=== PATIENT | female | born 1995 | race Two or more races ===

== ENCOUNTER 2024-12-02 09:10 | Emergency (ER) | payer OTHER ==
[~2024-12-02] VITALS: Ht 157.5 cm; Wt 100.0 kg
--- NOTE | 2024-12-02 09:36 | ECG ---
[facility] Test Date: 2024-12-02 Test Time: 09:20:15 Pat Name: MORIAH CLIFTON Department: ER Room: Gender: F Comprehensive Ophthalmologist: STAR : 1995 Requested By: GIL ROLDAN Order Number: [id number] Reading MD: Naveed Garner Measurements Intervals [place] Rate: 82 P: 0 TN: 0 QRS: 55 QRSD: 81 T: 35 QT: 372 QTc: 435 Interpretive Statements Normal sinus rhythm Low voltage, precordial leads Electronically Signed On 12-02-2024 21:08:34 PDT by Naveed Garner Please click the below link to view image of tracing.
--- NOTE | 2024-12-02 10:05 | ED.PDOC ---
HPI Comments 29 y/o F, with PMHx of arthritis, asthma, and HTN presents to the ED for CC of chest pain. Patient states, she has been experiencing left sided chest pain with associated dizziness and lightheadedness since, early last night (12/01/24). Patient reports, pain to feel as a pinching sensation. Patient denies palpitations, shortness of breath, or headache. No other symptoms or modifying factors present at this time. 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 Family History Family History: Unknown Social History Smoker: Non-Smoker Alcohol: Denies ETOH Use Drugs: Denies Drug Use Lives In: Home Constitutional: denies: chills, diaphoresis, fatigue, fever, malaise, sweats, weakness, others EENTM: denies: blurred vision, double vision, ear bleeding, ear discharge, ear drainage, ear pain, ear ringing, eye pain, eye redness, hearing loss, mouth pain, mouth swelling, nasal discharge, nose bleeding, nose congestion, nose pain, photophobia, tearing, throat pain, throat swelling, voice changes, others Respiratory: denies: cough, hemoptysis, orthopnea, SOB at rest, shortness of breath, SOB with excertion, stridor, wheezing, others Cardiovascular: reports: chest pain; denies: dizzy spells, diaphoresis, Dyspnea on exertion, edema, irregular heart beat, left arm pain, lightheadedness, palpitations, PND, syncope, others Gastrointestinal: denies: abdomen distended, abdominal pain, blood streaked bowels, constipated, diarrhea, dysphagia, difficulty swallowing, hematemesis, melena, nausea, poor appetite, poor fluid intake, rectal bleeding, rectal pain, vomiting, others Genitourinary: denies: abnormal vagina bleeding, burning, dyspareunia, dysuria, flank pain, frequency, hematuria, incontinence, pain, , vagina discharge, urgency, others Neurological: reports: dizziness, others (lightheadedness); denies: fainting, headache, left sided numbness, left sided weakness, numbness, paresthesia, pre- existing deficit, right sided numbness, right sided weakness, seizure, speech problems, tingling, tremors, weakness Musculoskeletal: denies: back pain, gout, joint pain, joint swelling, muscle pain, muscle stiffness, neck pain, others Integumetry: denies: bruises, change in color, change in hair/nails, dryness, laceration, lesions, lumps, rash, wounds, others Allergic/Immunocompromised: denies: Difficulty Healing, Frequent Infections, Hives, Itching, others Hematologic/Lymphatic: denies: anemia, blood clots, easy bleeding, easy bruising, swollen glands, others Endocrine: denies: excessive hunger, excessive sweating, excessive thirst, excessive urination, flushing, intolerance to cold, intolerance to heat, unexplained weight gain, unexplained weight loss, others Psychiatric: denies: anxiety, bipolar disorder, depression, hopeless, panic disorder, schizophrenia, sleepless, suicidal, others All Other Systems: Reviewed and Negative Physical Exam General Appearance: No Apparent Distress, Normal HEENT: Normal ENT Inspection, Pharynx Normal Neck: Full Range of Motion, Non-Tender, Normal, Normal Inspection Respiratory: Chest Non-Tender, Lungs Clear, No Accessory Muscle Use, No Respiratory Distress, Normal Breath Sounds Cardiovascular: No Edema, No Murmur, No Gallop, Normal Peripheral Pulses, Regular Rate/Rhythm Breast Exam: Deferred Gastrointestinal: No Organomegaly, Non Tender, No Pulsatile Mass, Normal Bowel Sounds, Soft Genitalia: Deferred Pelvic: Deferred Rectal: Deferred Extremities: No calf tenderness, Normal capillary refill, Normal inspection, Normal range of motion, Non-tender, No pedal edema Musculoskeletal : Apperance: Normal Neurologic: Alert, lead front end developer II-XII nml as Tested, No Motor Deficits, Normal Affect, Normal Mood, No Sensory Deficits Cerebellar Function: Normal Reflexes: Normal Skin: Dry, Normal Color, Warm Lymphatic: No Adenopathy Was a procedure done? Was a procedure done?: No CP Differential Dx Differential Diagnosis: A-fib Differential Diagnosis: HTN Essential, HTN Accelerated Differential Diagnosis: Chest Wall Pain, Costochondritis X-Ray, Labs, Meds, VS Vital Signs Date Time Temp Pulse Resp B/P (MAP) Pulse Ox O2 Delivery O2 Flow Rate FiO2 12/02/24 10:45 68 14 97 Room Air* 0 21 12/02/24 10:21 64 12/02/24 09:43 97.7 85 16 141/79 (99) 95 97.7 12/02/24 09:20 86 12/02/24 09:11 97.6 89 18 152/90 (110) 100 97.6 Lab Test 12/02/24 10:25 12/02/24 09:25 12/02/24 09:18 Range/Units Troponin I High Sensitivity < 3 L < 3 L </=34 ng/L White Blood Count 9.7 4.4-10.8 10^3/uL Red Blood Count 5.19 4.0-5.20 10^6/uL Hemoglobin 15.5 12.2-16.2 g/dL Hematocrit 45.9 36.0-46.0 % Mean Corpuscular Volume 88.4 80.0-100.0 fL Mean Corpuscular Hemoglobin 29.9 28.0-32.0 pg Mean Corpuscular Hemoglobin Concent 33.8 32.0-36.0 g/dL Red Cell Distribution Width 13.1 11.8-14.3 % Platelet Count 282 140-450 10^3/uL Mean Platelet Volume 8.6 6.9-10.8 fL Neutrophils (%) (Auto) 67.0 37.0-80.0 % Lymphocytes (%) (Auto) 23.8 10.0-50.0 % Monocytes (%) (Auto) 6.8 0.0-12.0 % Eosinophils (%) (Auto) 1.8 0.0-7.0 % Basophils (%) (Auto) 0.6 0.0-2.0 % Neutrophils # (Auto) 6.5 1.6-8.6 10 ^3/uL Lymphocytes # (Auto) 2.3 0.4-5.4 10 ^3/uL Monocytes # (Auto) 0.7 0-1.3 10 ^3/uL Eosinophils # (Auto) 0.2 0-0.8 10 ^3/uL Basophils # (Auto) 0.1 0-0.2 10 ^3/uL Nucleated Red Blood Cells 0.0 % Sodium Level 140 136-145 mmol/L Potassium Level 4.0 3.5-5.1 mmol/L Chloride Level 103 98-107 mmol/L Carbon Dioxide Level 27 20-31 mmol/L Anion Gap 10 5-15 Blood Urea Nitrogen 10 9-23 mg/dL Creatinine 0.65 0.550-1.02 mg/dL Glomerular Filtration Rate Calc 121 >90 mL/min BUN/Creatinine Ratio 15.4 10.0-20.0 Serum Glucose 105 74-106 mg/dL Calcium Level 9.8 8.7-10.4 mg/dL POC Glucose 96 70-106 mg/dl [place] [address] Ph: [phone] DIAGNOSTIC IMAGING Diagnostic Imaging Report : [id number] Signed PATIENT: MORIAH CLIFTONCCT: [id number] UNIT: [id number] : 1995 LOC: ER ROOM / BED: / AGE / SEX: 29 / F ADM STATUS: REG ER SERVICE 1026 ORDERING PHYSICIAN: GIL ROLDAN MD PROCEDURE(s): CXRP - CHEST PORTABLE REASON: chest pain ORDER NUMBER(s): [id number], ACCESSION NUMBER(s): [id number] EXAM: XY CHEST PORTABLE HISTORY: chest pain COMPARISON: None TECHNIQUE: Portable upright AP view of the chest was performed. FINDINGS: No pneumothorax, consolidative infiltrates, or pulmonary edema. The heart is not enlarged. There is slight thoracic dextroscoliosis. IMPRESSION: No acute intrathoracic process. ATED BY: HERBER CHASE MD DICTATED DATE/TIME: 12/02/24 1101 SIGNED BY: HERBER CHASE MD SIGNED DATE/TIME: 12/02/24 110 CC: Time of 1ST Reevaluation: 10:20 Reevaluation 1ST: Unchanged Patient Education/Counseling: Diagnosis, Treatment Family Education/Counseling: No Family Present Departure 1 Departure Time of Disposition: 11:07 (Patient presented with chest pain that was concerning for possible STEMI, ACS, PE, Pneumonia, Muscle Strain, COPD, Dissection. Data: 1. I ordered and reviewed the result of at least 3 labs incl uding a CBC, BMP, and Troponin. 2. I independently interpreted the following tests: EKG which shows normal sinus rhythm and Chest X-ray which shows a benign chest.Risk:This patient presented with a high risk of morbidity due to further diagnostic testing or treatment and may suffer from an acute cardiac or respiratory disorder. After review of all the data patient is unlikely to have a pe , dissection, and is low risk for acs. Patient is stable at this time.Workup so far is benign and patient will be discharged with outpatient followup. ) Impression: Primary Impression: Acute chest pain Disposition: HOME / SELF CARE / HOMELESS Condition: Stable Additional Instructions: You presented today with chest pain. Your workup today was benign including labs, troponin, EKG, chest x-ray. Your pain may be from musculoskeletal strain, acid reflux, anxiety, or many other factors. It is important to follow up with your regular doctor within 1 week. If your symptoms worsen or you have any other concerns please return to the emergency room. Discharged With: Self Critical Care Note Critical Care Time?: No Stability Stability form required: No Heart Score Heart Score: Heart Score Response (Comments) Value History N/A 0 EKG N/A 0 Age N/A 0 Risk Factors N/A 0 Troponin N/A 0 Total 0 I personally scribed for GIL ROLDAN MD ([email or web address]) on 12/02/24 at 10:05. Electronically submitted by Chanel Caban ([email or web address]). I personally scribed for GIL ROLDAN MD ([email or web address]) on 12/02/24 at 11:06. Electronically submitted by Chanel Caban ([email or web address]). GIL ROLDAN MD December 02, 2024 10:05
[2024-12-02 10:25] LABS: Basophils # (auto) 0.1 10 ^3/uL (0-0.2); Basophils % (auto) 0.6 % (0.0-2.0); Eosinophils # (auto) 0.2 10 ^3/uL (0-0.8); Eosinophils % (auto) 1.8 % (0.0-7.0); Hematocrit 45.9 % (36.0-46.0); Hemoglobin 15.5 g/dL (12.2-16.2); Lymphocytes # (auto) 2.3 10 ^3/uL (0.4-5.4); Lymphocytes % (auto) 23.8 % (10.0-50.0); Mean Corpuscular Hemoglobin 29.9 pg (28.0-32.0); Mean Corpuscular Hgb Conc. 33.8 g/dL (32.0-36.0); Mean Corpuscular Volume 88.4 fL (80.0-100.0); Monocytes # (auto) 0.7 10 ^3/uL (0-1.3); Monocytes % (auto) 6.8 % (0.0-12.0); Neutrophils # (auto) 6.5 10 ^3/uL (1.6-8.6); Platelet Count (auto) 282 10^3/uL (140-450); Red Blood Cells 5.19 10^6/uL (4.0-5.20); Red Cell Distribution Width 13.1 % (11.8-14.3); White Blood Cell 9.7 10^3/uL (4.4-10.8)
[2024-12-02 10:27] LABS: Chloride 103 mmol/L (98-107); Sodium 140 mmol/L (136-145)
[2024-12-02 10:28] LABS: Anion Gap 10 (5-15); Calcium 9.8 mg/dL (8.7-10.4); Carbon Dioxide 27 mmol/L (20-31)
[2024-12-02 10:33] LABS: BUN/Creatinine Ratio 15.4 (10.0-20.0); Blood Urea Nitrogen 10 mg/dL (9-23); Glucose 105 mg/dL (74-106)
[2024-12-02 10:45] VITALS: PULSE 68; RESP 14; O2SAT 97
--- NOTE | 2024-12-02 11:03 | DVH ---
EXAM: XY CHEST PORTABLE HISTORY: chest pain COMPARISON: None TECHNIQUE: Portable upright AP view of the chest was performed. FINDINGS: No pneumothorax, consolidative infiltrates, or pulmonary edema. The heart is not enlarged. There is s light thoracic dextroscoliosis. IMPRESSION: No acute intrathoracic process.
--- NOTE | 2024-12-02 11:06 | ECG ---
[facility] Test Date: 2024-12-02 Test Time: 10:21:30 Pat Name: MORIAH CLIFTON Department: ED Room: Gender: F Jd Edwards Developer: gp : 1995 Requested By: GIL ROLDAN Order Number: [id number] Reading MD: Naveed Garner Measurements Intervals [place] Rate: 64 P: 65 TN: 152 QRS: 50 QRSD: 81 T: 32 QT: 397 QTc: 410 Interpretive Statements Sinus rhythm Low voltage, precordial leads Electronically Signed On 12-02-2024 21:07:37 PDT by Naveed Garner Please click the below link to view image of tracing.
[2024-12-02 14:22] LABS: Urine Bacteria FEW /hpf (None Seen); Urine Blood 3+ /uL (Negative); Urine Clarity Turbid (Clear); Urine Color Colorless (Yellow); Urine Protein, UAD Negative (Negative); Urine Specific Gravity 1.004 (1.001-1.035); Urine Squamous Epithelial Cell FEW /hpf (<5); Urine Urobilinogen Normal (Negative); Urine WBC < 1 /HPF (0-5)
[2024-12-02 15:00] VITALS: BP 115/73; PULSE 78; RESP 16; TEMP 98.7; O2SAT 98
[2024-12-03] MEDS ORDERED: MECL1TAB42 PO (17:23)
== END 2024-12-02 15:24 | disposition home or self-care (01) ==
LOC: ER 09:10
DX: R07.89 Other chest pain (principal); I10 Essential (primary) hypertension; M19.90 Unspecified osteoarthritis, unspecified site; J44.89 Other specified chronic obstructive pulmonary disease; Z88.6 Allergy status to analgesic agent
CPT/HCPCS: 36415; 71045; 80048; 81001; 82947; 82962; 84484; 85025; 85379; 93005

== ENCOUNTER 2024-12-03 15:26 | Emergency (ER) | payer OTHER ==
[~2024-12-03] VITALS: Ht 157.5 cm; Wt 83.1 kg
--- NOTE | 2024-12-03 15:34 | ED.PDOC ---
History of Present Illness HPI Comments 29-year-old female brought by paramedics because he was having chest pain with no radiation of the chest pain to the shoulder to the back which started yesterday continued to present moment. Patient was seen for the same symptom yesterday for which she was discharged after normal workup. She comes back today because she continues to have the chest pain with no shortness a breath. She also states her blood pressure has been fluctuating. Blood pressure on arrival was 142/88. Denies any past medical history of hypertension diabetes. Denies any other symptoms. 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 Family History Family History: Unknown Social History Smoker: Non-Smoker Alcohol: Denies ETOH Use Drugs: Denies Drug Use Lives In: Home Constitutional: denies: chills, diaphoresis, fatigue, fever, malaise, sweats, weakness, others Respiratory: denies: cough, hemoptysis, orthopnea, SOB at rest, shortness of breath, SOB with excertion, stridor, wheezing, others Cardiovascular: reports: chest pain; denies: dizzy spells, diaphoresis, Dyspnea on exertion, edema, irregular heart beat, left arm pain, lightheadedness, palpitations, PND, syncope, others Gastrointestinal: denies: abdomen distended, abdominal pain, blood streaked bowels, constipated, diarrhea, dysphagia, difficulty swallowing, hematemesis, melena, nausea, poor appetite, poor fluid intake, rectal bleeding, rectal pain, vomiting, others Genitourinary: denies: abnormal vagina bleeding, burning, dyspareunia, dysuria, flank pain, frequency, hematuria, incontinence, pain, , vagina discharge, urgency, others Neurological: denies: dizziness, fainting, headache, left sided numbness, left sided weakness, numbness, paresthesia, pre-existing deficit, right sided numbness, right sided weakness, seizure, speech problems, tingling, tremors, weakness, others Musculoskeletal: denies: back pain, gout, joint pain, joint swelling, muscle pain, muscle stiffness, neck pain, others Integumetry: denies: bruises, change in color, change in hair/nails, dryness, laceration, lesions, lumps, rash, wounds, others Allergic/Immunocompromised: denies: Difficulty Healing, Frequent Infections, Hives, Itching, others Hematologic/Lymphatic: denies: anemia, blood clots, easy bleeding, easy bruising, swollen glands, others Endocrine: denies: excessive hunger, excessive sweating, excessive thirst, excessive urination, flushing, intolerance to cold, intolerance to heat, un explained weight gain, unexplained weight loss, others Psychiatric: denies: anxiety, bipolar disorder, depression, hopeless, panic disorder, schizophrenia, sleepless, suicidal, others Physical Exam General Appearance: Moderate Distress HEENT: Normal ENT Inspection, Pharynx Normal, TMs Normal Neck: Full Range of Motion, Non-Tender, Normal, Normal Inspection Respiratory: Chest Non-Tender, Lungs Clear, No Accessory Muscle Use, No Respiratory Distress, Normal Breath Sounds Cardiovascular: No Edema, No JVD, No Murmur, No Gallop, Normal Peripheral Pulses, Regular Rate/Rhythm Breast Exam: Deferred Gastrointestinal: No Organomegaly, Non Tender, No Pulsatile Mass, Normal Bowel Sounds, Soft Genitalia: Deferred Pelvic: Deferred Rectal: Deferred Extremities: No calf tenderness, Normal capillary refill, Normal inspection, Normal range of motion, Non-tender, No pedal edema Musculoskeletal : Apperance: Normal Neurologic: Alert, transport tech II-XII nml as Tested, No Motor Deficits, Normal Affect, Normal Mood, No Sensory Deficits Cerebellar Function: NOT DONE Reflexes: NOT DONE Skin: Dry, Normal Color, Warm Peripheral Pulses: 3+ Radial (R), 3+ Radial (L) Lymphatic: No Adenopathy Was a procedure done? Was a procedure done?: No EKG EKG : [place]: Normal Cardiac Rhythm: NSR Differential Dx Considerations may include: Anxiety Musculoskeletal pain X-Ray, Labs, Meds, VS Vital Signs Date Time Temp Pulse Resp B/P (MAP) Pulse Ox O2 Delivery O2 Flow Rate FiO2 12/03/24 15:27 63 Lab Test 12/03/24 16:34 12/03/24 15:36 Range/Units Troponin I High Sensitivity < 3 L < 3 L </=34 ng/L D-Dimer, Quantitative < 0.19 0.0-0.49 mg/L FEU Patient alert. Complaining of chest pain. EKG reviewed does not show any acute changes. Vitals stable. Answering questions. No leg swelling. No shortness a breath. No radiation of the chest pain. Was given aspirin. Was given meclizine. Reviewed her previous visit. [facility] Explained to the patient. Continue monitoring. On re-evaluation she has good muscle strength. D-dimer within normal limits. Cardiac marker within normal limits. No sign of any distress. No sign of TIA. No sign of CVA. No risk factors. Possible anxiety. CT scan of the head was not done because physical examination was pristine. Was given prescription of meclizine for possible autonomic disorder. Was told to follow up with her primary care physician. Was told to come back if there is any problem. Time of 1ST Reevaluation: 15:32 Reevaluation 1ST: Improved Patient Education/Counseling: Diagnosis, Treatment, Prognosis, Need For Follow Up Family Education/Counseling: No Family Present Departure 1 Departure Time of Disposition: 15:33 Impression: Primary Impression: Autonomic disorder Additional Impressions: Musculoskeletal chest pain Anxiety Disposition: 01 HOME / SELF CARE / HOMELESS Condition: Good e-Prescriptions Meclizine HCl (Meclizine 25) 25 Mg Tab 25 MG PO DAILY for 5 Days, #5 TAB Prov: BILL HAM MD 12/03/24 Discharged With: Self Critical Care Note Critical Care Time?: No Stability Stability form required: No Heart Score Heart Score: Heart Score Response (Comments) Value History Slightly Suspicious 0 EKG Normal 0 Age <45 0 Risk Factors No known risk factors 0 Troponin Normal limit 0 Total 0 BILL HAM MD December 03, 2024 15:34
[2024-12-03] MEDS ORDERED: MECL1TAB42 PO (17:23)
[2024-12-03 17:37] VITALS: BP 142/88; PULSE 70; RESP 18; TEMP 97.6; O2SAT 99
[2024-12-03] MEDS: ASPirin 325 MG TAB PO ONE (18:42)
[2024-12-03] MEDS: MECLIZINE HCL 25 MG TAB PO ONE (18:42)
--- NOTE | 2024-12-04 07:14 | ECG ---
[facility] Test Date: 2024-12-03 Test Time: 15:27:19 Pat Name: MORIAH CLIFTON Department: ED Room: Gender: F Procurement Clerk: GEORGE : 1995 Requested By: BILL HAM Order Number: [id number] Reading MD: Naveed Garner Measurements Intervals [place] Rate: 63 P: 55 [place]: 158 QRS: 33 QRSD: 82 T: 7 QT: 398 QTc: 408 Interpretive Statements Sinus rhythm Electronically Signed On 12-08-2024 12:08:28 PDT by Naveed Garner Please click the below link to view image of tracing.
== END 2024-12-03 18:56 | disposition home or self-care (01) ==
LOC: EDBD 15:26 → ER 15:29
DX: G90.9 Disorder of the autonomic nervous system, unspecified (principal); R07.89 Other chest pain; F41.9 Anxiety disorder, unspecified; I10 Essential (primary) hypertension; J45.909 Unspecified asthma, uncomplicated; M19.90 Unspecified osteoarthritis, unspecified site; Z88.6 Allergy status to analgesic agent
CPT/HCPCS: 36415; 84484; 85379; 93005; 99284; J8597

== ENCOUNTER 2025-03-28 17:22 | Emergency (ER) | payer OTHER ==
[~2025-03-28] VITALS: Ht 157.5 cm; Wt 100.0 kg
[~2025-03-28 17:22] MED LIST: MECL1TAB42 PO
[2025-03-28] MEDS: OXYCODONE W/ ACETAMINOPHEN 5/325MG TABLET PO ONE (18:29)
--- NOTE | 2025-03-28 18:45 | ED.PDOC ---
Back pain HPI HPI Comments 29-YEAR-OLD FEMALE PRESENTS TO THE ED CHIEF COMPLAINT OF MID TO LOW BACK PAIN. PATIENT REPORTS MID TO LOWER BACK [PAIN RADFIATES TO BUTTOCKS AND LEGS STATES INJURY LAST FRIDAY, STATES SHE WAS SEEN AT AN URGENT CARE AND BY HER PCP FOR CC PT STATES MEDICATIONS FOR NERVE PAIN AND PAIN AREE NOT HELPING. PATIENT REPORTS HISTORY OF BACK PAIN IN THE PAST, HOWEVER SHE NOTES THIS PAIN STARTED AFTER THE COUGHING A LOT. PATIENT STATES SHE WAS PRESCRIBED LYRICA TOOTH, MEDROL DOSEPAK, WAS GIVEN A TORADOL SHOT STATES NO HELP. RATES PAIN 10/10 ON PAIN SCALE I SHARP SHOOTING PAIN DOWN BILATERAL LEGS TO THE FOOT WITH NUMBNESS AND HEAVINESS. DENIES SADDLE ANESTHESIA, LOSS OF BOWEL OR BLADDER CONTROL, OR FOOT DROP. WAITING WITH A WALKER STATES PAIN IS WORSE WITH AMBULATION. 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 Family History Family History: Unknown Social History Smoker: Non-Smoker Alcohol: Denies ETOH Use Drugs: Denies Drug Use Lives In: Home All Other Systems: Reviewed and Negative (SEE HPI) Physical Exam General Appearance: No Apparent Distress, Normal HEENT: Pharynx Normal Neck: Full Range of Motion, Non-Tender Respiratory: Lungs Clear, No Respiratory Distress, Normal Breath Sounds Cardiovascular: No Edema, No JVD, No Murmur, No Gallop, Normal Peripheral Pulses, Regular Rate/Rhythm Breast Exam: Deferred Gastrointestinal: No Organomegaly, Non Tender, No Pulsatile Mass, Normal Bowel Sounds, Soft Genitalia: Deferred Pelvic: Deferred Rectal: Deferred Extremities: No calf tenderness, Normal capillary refill, Normal range of motion, Non-tender, No pedal edema Musculoskeletal : Location: Bilateral Extremity Location: Back (MODERATE TENDERNESS ON PALPATION T9 THROUGH L5 SPINE WITHOUT CREPITUS OR STEP-OFFS. NEGATIVE STRAIGHT LEG RAISE BILATERAL. STRENGTH SENSORY MOTION IS INTACT. FOOT DROP BILATERAL. NO NOTED GROSS EXTERNAL TRAUMA. MODERATE AMOUNT OF SPASMS ALONG THORACIC AND LUMBAR PARASPINAL MUSCLES BILATERAL.) Apperance: Normal Neurologic: Alert, No Motor Deficits, Normal Affect, Normal Mood, No Sensory Deficits Cerebellar Function: Normal Reflexes: Normal Skin: Dry, Normal Color, Warm Lymphatic: No Adenopathy Was a procedure done? Was a procedure done?: No Back Pain Differential Dx Differential Diagnosis: Fracture, Musculoskeletal Pain X-Ray, Labs, Meds, VS Vital Signs Date Time Temp Pulse Resp B/P (MAP) Pulse Ox O2 Delivery O2 Flow Rate FiO2 03/28/25 17:31 97.8 118 18 146/88 100 97.8 Lab Test 03/28/25 17:41 Range/Units Urine Color Colorless Yellow Urine Clarity Clear Clear Urine pH 6.5 5.0-9.0 Urine Specific [place] 1.007 1.001-1.035 Urine Protein Negative Negative Urine Ketones Negative Negative Urine Blood Negative Negative /uL Urine Nitrite Negative Negative Urine Bilirubin Negative Negative Urine Urobilinogen Normal Negative mg/dL Urine Leukocyte Esterase Negative Negative /uL Urine RBC 1 0 - 4 /hpf Urine Microscopic WBC < 1 0-5 /HPF Urine Squamous Epithelial Cells Few <5 /hpf Urine Amorphous Crystals Few None Seen /hpf Urine Bacteria Few H None Seen /hpf Urine Glucose Normal Normal mg/dL Current Medications Medications (Trade) Dose Ordered Sig/Mario Route Start Time Stop Time Status Last Admin Oxycodone/ Acetaminophen (Percocet 5/ 325MG Tablet) 1 tab ONCE ONCE PO 03/28/25 18:30 03/28/25 18:31 DC 03/28/25 18:29 X-Ray, Labs, Meds, VS Comment Thoracic spine: There are 12 rib-bearing thoracic type vertebral bodies. The vertebral body heights are maintained. Alignment is preserved. There is no acute fracture. No high-grade neural foraminal or spinal stenosis. The posterior paraspinal soft tissues are unremarkable. Visualized lungs are clear. Lumbar spine: 5 [id number] lumbar type vertebral bodies. Vertebral body heights are maintained. Alignment is preserved. There is no acute fracture. No high-grade neural foraminal or spinal stenosis. The posterior paraspinal soft tissues are intact. Visualized portions of the abdomen are unremarkable. IMPRESSION: No acute fracture or traumatic malalignment in the thoracic or lumbar spine Time of 1ST Reevaluation: 18:10 Reevaluation 1ST: Unchanged Time of 2ND Reevaluation: 20:18 Reevaluation 2ND: Improved Patient Education/Counseling: Diagnosis, Treatment, Prognosis, Need For Follow Up Family Education/Counseling: No Family Present SEPSIS Sepsis Screen Date sepsis recognized/suspect: Mar 28, 2025 Time Sepsis recognized/suspect: 1731 Recent Procedure: No On Antibiotic Therapy: No Respiratory Rate >20: No Heart Rate >90: No Temp<36 C (96.8 F) or >38.3 C: No SBP <90 or MAP <65 mmHG: No New Acute Mental Status Change: No Is the patient on CPAP, BIPAP,: No Physician Orders Ls Spine Wo Contrast (03/28/25 18:20) Thoracic Spine Wo Contras (03/28/25 18:20) Vital Signs Date Time Temp Pulse Resp B/P (MAP) Pulse Ox O2 Delivery O2 Flow Rate FiO2 03/28/25 17:31 97.8 118 18 146/88 100 97.8 Medications Medications Dose Ordered Sig/Mario Route Start Time Stop Time Status Last Admin Dose Admin Oxycodone/ Acetaminophen 1 tab ONCE ONCE PO 03/28/25 18:30 03/28/25 18:31 DC 03/28/25 18:29 Departure 1 Departure Time of Disposition: 20:16 Impression: Primary Impression: Lumbar sprain Qualified Codes: S33.5XXA - Sprain of ligaments of lumbar spine, initial encounter Additional Impressions: Strain of muscle and tendon of back wall of thorax, initial encounter UTI (urinary tract infection) Qualified Codes: N30.00 - Acute cystitis without hematuria Disposition: 01 HOME / SELF CARE / HOMELESS Condition: Stable e-Prescriptions Nitrofurantoin Monohydrate Mac (Macrobid) 100 Mg Cap 100 MG PO BID for 5 Days, #10 CAP Prov: SHEA MURPHY 03/28/25 Discharged With: Significant Other Critical Care Note Critical Care Time?: No Stability Stability form required: SHEA Merino Mar 28, 2025 18:45
[2025-03-28 19:17] LABS: Urine Amorphous Crystal FEW /hpf (None Seen); Urine Protein, UAD Negative (Negative)
--- NOTE | 2025-03-28 20:06 | DVH ---
CLINICAL HISTORY: bilateral leg numbness/back pain injury TECHNIQUE: CT of the thoracic and lumbar spine was performed without intravenous contrast. This exam was performed according to our departmental dose optimization program. Up-to-date CT equipment and ra diation dose reduction techniques are utilized as appropriate. CTDI: 37.01 +0.48 +32.92 DLP: 1521.14 WID: COMPARISON: None FINDINGS: Thoracic spine: There are 12 rib-bearing thoracic type vertebral bodies. The vertebral body heights are maintained. A lignment is preserved. There is no acute fracture. No high-grade neural foraminal or spinal stenosis. The posterior paraspinal soft tissues are unremarkable. Visualized lungs are clear. Lumbar spine: 5 Uzw-[id number]-xwdlscc lumbar type vertebral bodies. Vertebral body heights are maintained. Alignment is preserved. There is no acute fracture. No high-grade neural foraminal or spinal stenosis. The levee superintendent ior paraspinal soft tissues are intact. Visualized portions of the abdomen are unremarkable. IMPRESSION: No acute fracture or traumatic malalignment in the thoracic or lumbar spine.
--- NOTE | 2025-03-28 20:06 | DVH ---
CLINICAL HISTORY: bilateral leg numbness/back pain injury TECHNIQUE: CT of the thoracic and lumbar spine was performed without intravenous contrast. This exam was performed according to our departmental dose optimization program. Up-to-date CT equipment and ra diation dose reduction techniques are utilized as appropriate. CTDI: 37.01 +0.48 +32.92 DLP: 1521.14 WID: COMPARISON: None FINDINGS: Thoracic spine: There are 12 rib-bearing thoracic type vertebral bodies. The vertebral body heights are maintained. A lignment is preserved. There is no acute fracture. No high-grade neural foraminal or spinal stenosis. The posterior paraspinal soft tissues are unremarkable. Visualized lungs are clear. Lumbar spine: 5 Qlg-ydv-lzgrsuh lumbar type vertebral bodies. Vertebral body heights are maintained. Alignment is preserved. There is no acute fracture. No high-grade neural foraminal or spinal stenosis. The torpedoman's mate ior paraspinal soft tissues are intact. Visualized portions of the abdomen are unremarkable. IMPRESSION: No acute fracture or traumatic malalignment in the thoracic or lumbar spine.
[2025-03-28] MEDS ORDERED: NITR-87 PO (20:18)
[2025-03-28] MEDS ORDERED: HYDR-4902 PO (20:22)
[2025-03-28 20:34] VITALS: BP 144/90; PULSE 88; RESP 18; TEMP 97.5; O2SAT 99
== END 2025-03-28 21:03 | disposition home or self-care (01) ==
LOC: ER 17:22
DX: S29.012A Strain of muscle and tendon of back wall of thorax, initial encounter (principal); S33.5XXA Sprain of ligaments of lumbar spine, initial encounter; I10 Essential (primary) hypertension; J45.909 Unspecified asthma, uncomplicated; M19.90 Unspecified osteoarthritis, unspecified site; N39.0 Urinary tract infection, site not specified; Z88.6 Allergy status to analgesic agent; Z88.8 Allergy status to other drugs, medicaments and biological substances; X58.XXXA Exposure to other specified factors, initial encounter; Y93.89 Activity, other specified; Y92.89 Other specified places as the place of occurrence of the external cause; Y99.8 Other external cause status
CPT/HCPCS: 72128; 72131; 81001

== ENCOUNTER 2025-04-18 15:47 | Inpatient (IN) | payer OTHER ==
[~2025-04-18] VITALS: Ht 157.5 cm; Wt 100.0 kg
[~2025-04-18 15:47] MED LIST changes: +HYDR-4902 PO
--- NOTE | 2025-04-18 16:40 | ED.PDOC ---
History of Present Illness HPI Comments 29-year-old female who presents to the ED with a chief bilateral leg pain onset 4 days. Patient states she was seen in his ED on 03/28/2025 for low back pain, patient took a few weeks off work. Return to work 4 days ago, began experiencing low back pain that worsened this morning. Since this morning, she noticed bilateral hip pain radiating to bilateral legs with a numbness sensation as well as numbness on groin region. States numbness sensation when urinating. Back pain as a burning sensation, noticed back pain worsens when she tries to have a bowel movement. She currently is unable to walk, uses her mother's electrical scooter. Denies nausea, vomiting, diarrhea, chest pain, fever, shortness of breath, dizziness. No other symptoms or modifying factors present at this time. Chief Complaint: Lower Extremity Time Seen by MD: 16:30 Primary Care Provider: UMANG Johnson Notes: Medications, Allergies Allergies: Coded Allergies: Naproxen (Verified Allergy, Unknown, 12/02/24) Home Meds Active Scripts Hydrocodone-Acetaminophen (Hydrocodone Bitartrate/AC 5-325 mg) 1 Tab Tab, 1 TAB PO QID PRN for 4 Days, #16 TAB Prov:GIL ROLDAN MD 03/28/25 Meclizine HCl (Meclizine 25) 25 Mg Tab, 25 MG PO DAILY for 5 Days, #5 TAB Prov:BILL HAM MD 12/03/24 Information Source: Patient Mode of Arrival: Wheelchair Severity: Moderate Timing: Days Duration: Since onset Prehospital treatment: None Past Medical History PAST MEDICAL HISTORY: Arthritis, Asthma, HTN Surgical History: Denies all surgeries 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 Family History Family History: Unknown Social History Smoker: Non-Smoker Alcohol: Denies ETOH Use Drugs: Denies Drug Use Lives In: Home Constitutional: denies: chills, diaphoresis, fatigue, fever, malaise, sweats, weakness, others EENTM: denies: blurred vision, double vision, ear bleeding, ear discharge, ear drainage, ear pain, ear ringing, eye pain, eye redness, hearing loss, mouth pain, mouth swelling, nasal discharge, nose bleeding, nose congestion, nose pain, photophobia, tearing, throat pain, throat swelling, voice changes, others Respiratory: denies: cough, hemoptysis, orthopnea, SOB at rest, shortness of breath, SOB with excertion, stridor, wheezing, others Cardiovascular: denies: chest pain, dizzy spells, diaphoresis, Dyspnea on exertion, edema, irregular heart beat, left arm pain, lightheadedness, palpitations, PND, syncope, others Gastrointestinal: denies: abdomen distended, abdominal pain, blood streaked bowels, constipated, diarrhea, dysphagia, difficulty swallowing, hematemesis, melena, nausea, poor appetite, poor fluid intake, rectal bleeding, rectal pain, vomiting, others Genitourinary: reports: others (groin numbness); denies: abnormal vagina bleeding, burning, dyspareunia, dysuria, flank pain, frequency, hematuria, incontinence, pain, , vagina discharge, urgency Neurological: reports: numbness (groin, bilateral legs); denies: dizziness, fainting, headache, left sided numbness, left sided weakness, paresthesia, pre- existing deficit, right sided numbness, right sided weakness, seizure, speech problems, tingling, tremors, weakness, others Musculoskeletal: reports: back pain, others (bilateral hip pain, bilateral leg pain); denies: gout, joint pain, joint swelling, muscle pain, muscle stiffness, neck pain Integumetry: denies: bruises, change in color, change in hair/nails, dryness, laceration, lesions, lumps, rash, wounds, others Allergic/Immunocompromised: denies: Difficulty Healing, Frequent Infections, Hives, Itching, others Hematologic/Lymphatic: denies: anemia, blood clots, easy bleeding, easy bruising, swollen glands, others Endocrine: denies: excessive hunger, excessive sweating, excessive thirst, excessive urination, flushing, intolerance to cold, intolerance to heat, unexplained weight gain, unexplained weight loss, others Psychiatric: denies: anxiety, bipolar disorder, depression, hopeless, panic disorder, schizophrenia, sleepless, suicidal, others All Other Systems: Reviewed and Negative Physical Exam General Appearance: Normal HEENT: Normal ENT Inspection, Pharynx Normal, TMs Normal Neck: Full Range of Motion, Non-Tender, Normal, Normal Inspection Respiratory: Chest Non-Tender, Lungs Clear, No Accessory Muscle Use, No Respiratory Distress, Normal Breath Sounds Cardiovascular: No Edema, No JVD, No Murmur, No Gallop, Normal Peripheral Pulses, Regular Rate/Rhythm Breast Exam: Deferred Gastrointestinal: No Organomegaly, Non Tender, No Pulsatile Mass, Normal Bowel Sounds, Soft Genitalia: Deferred Pelvic: Deferred Rectal: Deferred Extremities: No calf tenderness, Normal capillary refill, Normal inspection, Normal range of motion, Non-tender, No pedal edema Musculoskeletal : Apperance: Normal Neurologic: Alert, contract negotiation manager II-XII nml as Tested, No Motor Deficits, Normal Affect, Normal Mood, No Sensory Deficits Cerebellar Function: Normal Reflexes: Normal Skin: Dry, Normal Color, Warm Lymphatic: No Adenopathy Was a procedure done? Was a procedure done?: No Differential Dx Considerations may include: Cauda equina, lumbar strain, X-Ray, Labs, Meds, VS Vital Signs Date Time Temp Pulse Resp B/P (MAP) Pulse Ox O2 Delivery O2 Flow Rate FiO2 04/18/25 15:59 98.1 97 18 152/94 97 98.1 Lab Test 04/18/25 17:22 Range/Units White Blood Count 11.6 H 4.4-10.8 10^3/uL Red Blood Count 5.12 4.0-5.20 10^6/uL Hemoglobin 15.2 12.2-16.2 g/dL Hematocrit 46.1 H 36.0-46.0 % Mean Corpuscular Volume 90.1 80.0-100.0 fL Mean Corpuscular Hemoglobin 29.7 28.0-32.0 pg Mean Corpuscular Hemoglobin Concent 33.0 32.0-36.0 g/dL Red Cell Distribution Width 14.1 11.8-14.3 % Platelet Count 246 140-450 10^3/uL Mean Platelet Volume 7.7 6.9-10.8 fL Neutrophils (%) (Auto) 65.0 37.0-80.0 % Lymphocytes (%) (Auto) 25.7 10.0-50.0 % Monocytes (%) (Auto) 7.5 0.0-12.0 % Eosinophils (%) (Auto) 1.3 0.0-7.0 % Basophils (%) (Auto) 0.5 0.0-2.0 % Neutrophils # (Auto) 7.5 1.6-8.6 10 ^3/uL Lymphocytes # (Auto) 3.0 0.4-5.4 10 ^3/uL Monocytes # (Auto) 0.9 0-1.3 10 ^3/uL Eosinophils # (Auto) 0.1 0-0.8 10 ^3/uL Basophils # (Auto) 0.1 0-0.2 10 ^3/uL Nucleated Red Blood Cells 0.1 % Sodium Level Pending Potassium Level Pending Chloride Level Pending Carbon Dioxide Level Pending Anion Gap Pending Blood Urea Nitrogen Pending Creatinine Pending Glomerular Filtration Rate Calc Pending BUN/Creatinine Ratio Pending Serum Glucose Pending Calcium Level Pending Time of 1ST Reevaluation: 17:00 Reevaluation 1ST: Unchanged Patient Education/Counseling: Diagnosis, Treatment, Prognosis Family Education/Counseling: No Family Present SEPSIS Sepsis Screen Date sepsis recognized/suspect: Apr 18, 2025 Time Sepsis recognized/suspect: 1558 Recent Procedure: No On Antibiotic Therapy: No Respiratory Rate >20: No Heart Rate >90: Yes Temp<36 C (96.8 F) or >38.3 C: No SBP <90 or MAP <65 mmHG: No New Acute Mental Status Change: No Is the patient on CPAP, BIPAP,: No Physician Orders Ls Spine Wo Contrast (04/18/25 16:33) Basic Metabolic Panel (04/18/25 16:33) Urinalysis (04/18/25 16:33) Vital Signs Date Time Temp Pulse Resp B/P (MAP) Pulse Ox O2 Delivery O2 Flow Rate FiO2 04/18/25 15:59 98.1 97 18 152/94 97 98.1 Laboratory Tests Test 04/18/25 17:22 White Blood Count 11.6 10^3/uL (4.4-10.8) H Departure 1 Departure Time of Disposition: 17:48 (Patient with concern for cauda equina syndrome. We will admit patient for further workup and MRI) Impression: Primary Impression: Lower back pain Qualified Codes: M54.50 - Low back pain, unspecified Additional Impressions: Muscle weakness Urinary retention Saddle anesthesia Disposition: ADMITTED INPATIENT Admit to: Med Surg Condition: Serious Critical Care Note Critical Care Time?: No Stability Stability form required: No Heart Score Heart Score: Heart Score Response (Comments) Value History N/A 0 EKG N/A 0 Age N/A 0 Risk Factors N/A 0 Troponin N/A 0 Total 0 I personally scribed for GIL ROLDAN MD ([email or web address]) on 04/18/25 at 16:40. Electronically submitted by Jenny Tello ([email or web address]). GIL ROLDAN MD Apr 18, 2025 16:40
--- NOTE | 2025-04-18 17:24 | DVH ---
EXAM: CT LS SPINE WO CONTRAST INDICATION: lower back pain with leg weakness and saddle anesthesia TECHNIQUE: Axial images of the lumbar spine have been obtained along with coronal and sagittal reform atted images. CT scans at this facility use dose modulation, iterative reconstruction, and/or weight based dosing when appropriate to reduce radiation dose to as low as reasonably achievable. COMPARISON: CT THORACIC SPINE WO CONTRAS on DOS: 03/28/25, CT LS SPINE WO CONTRAST on DOS: 03/28/25 Dose: CTDIvol: 33.59 mGy, DLP: 1192.3 mGy.cm FINDINGS: There is no acute displaced fracture. There is minimal endplate osteophytosis. Intervertebral disc h eights are well-maintained. The paraspinal soft tissues are unremarkable. LEVEL BY LEVEL DISCUSSION BELOW: T12-L1: Unremarkable. L1-L2: Unremarkable. L2-L3: Unremarkable. L3-L4: Unremarkable. L4-L5: A mild broad-based disc protrusion effaces the thecal sac without significant spinal canal or neural foraminal stenosis. L5-S1: There is a mild broad-based disc protrusion without significant spinal canal or neural foramin al narrowing. IMPRESSION: 1. No acute displaced fracture. 2. Minimal degenerative changes of the lumbar spine as detailed. If clinical symptoms persist, MRI ma y be beneficial in further assessment.
[2025-04-18 17:30] LABS: Hematocrit 46.1 % (36.0-46.0); Hemoglobin 15.2 g/dL (12.2-16.2); Mean Corpuscular Hemoglobin 29.7 pg (28.0-32.0); Mean Corpuscular Volume 90.1 fL (80.0-100.0); Nucleated Red Blood Cells % 0.1 %
[2025-04-18 17:41] LABS: Chloride 105 mmol/L (98-107); Potassium 3.8 mmol/L (3.5-5.1); Sodium 142 mmol/L (136-145)
[2025-04-18 17:42] LABS: Anion Gap 10 (5-15); Calcium 8.8 mg/dL (8.7-10.4); Carbon Dioxide 27 mmol/L (20-31)
[2025-04-18 17:47] LABS: BUN/Creatinine Ratio 10.8 (10.0-20.0); Glucose 102 mg/dL (74-106)
[2025-04-18 17:56] LABS: Blood Urea Nitrogen 7 mg/dL (9-23)
[2025-04-18 22:08] LABS: INR 1.02 (0.9-1.15); Partial Thromboplastin Time 28.5 SEC (24.5-34.5); Prothrombin Time 10.8 sec (9.3-11.8)
[2025-04-18 22:13] LABS: Alanine Aminotransferase 12.0 U/L (7-40); Albumin 4.2 g/dL (3.2-4.8); Alkaline Phosphatase 111.0 U/L (46-116); Bilirubin, Direct 0.1 mg/dL (<0.3); Cholesterol 166.0 mg/dL (< 200); HDL Cholesterol 49.0 mg/dL (40-59); Magnesium 1.8 mg/dL (1.6-2.6); Total Protein 6.8 g/dL (5.7-8.2); Triglycerides 86.0 mg/dL (< 150)
[2025-04-18 22:14] LABS: Bilirubin, Total 0.4 mg/dL (0.2-1.0)
[2025-04-18 22:36] LABS: Lipase 32.0 U/L (12-53)
[2025-04-19] MEDS ORDERED: VANCOMYCIN PER PHARMACY 0 MG IV SCH (01:30)
[2025-04-19] MEDS: ENOXAPARIN SOD 40 MG/0.4 ML SYRINGE SC SCH (01:30)
--- NOTE | 2025-04-19 01:30 | DVHHPRES ---
History of Present Illness Resident Creating Document: KLAUS NUNEZ RESIDENT History of Present Illness This is a 29-year-old female with past medical history of hypertension, asthma, arthritis, migraine, presented to the ER with chief complain of lower back pain and perineal numbness. She reports that the pain started in the lower back in February 2025 after she sneezed more than 20 times. The pain is located in the lower back, and is described as burning, pressure-like, worsens with movements and somewhat relieved with rest. A month later, in March she started complaining of back pain radiating to the both lower extremities. Since last 1 week, she reports incoordination and loss of balance causing her to fall towards the right side. She has been using a walker to help with support and has not reported a fall. Today, with progressive worsening of pain in bilateral lower limb and associated loss of sensation in perineum, urged her visit to the ER. She reports not having any sensations in perineum while urinating and has been having difficulty with bowel movements. She does not complain of any burning micturition, pain. She has positive history of UTI, treated with nitrofurantoin for 7 days in 1st week of March. Today, she denies any fever, chills, abdominal pain, constipation, diarrhea, recent injury, sick contacts. PHx: Hypertension, Asthma (last exacerbation 10 years back), arthritis, migraine PSHx: section, left foot cyst removal Family history: Significant for breast cancer in both maternal and paternal grandmothers Social history: Denies smoking, recreational drug use. Occasional alcohol use. Lives in home with family. Full code. Next to kin . Home medication: Qulipta, tramadol, Metoprolol Allergic history: Naproxen Patient was examined at bedside today. She is in severe distress due to lower back pain and saddle anesthesia. She is admitted for further management and will be evaluated by spinal surgery. Cardiovascular: HTN Pulmonary: Asthma CASH PERSON: Migraine Review of Systems Musculoskeletal: back pain, leg pain Neurological: Numbness, Incoordination Allergies: Coded Allergies: Naproxen (Verified Allergy, Unknown, 12/02/24) Exam Vital Signs Vital Signs Date Time Temp Pulse Resp B/P (MAP) Pulse Ox O2 Delivery O2 Flow Rate FiO2 04/18/25 15:59 98.1 97 18 152/94 97 98.1 Exam General: Patient alert and oriented in person, place and time. Patient following commands. HEENT: Normocephalic, atraumatic, moist mucous membranes Respiratory/pulmonary: Clear lungs bilaterally, vesicular murmurs present in almost all lung stevens, no associated crackles or wheezes. Cardiovascular: Normal heart sounds S1 and S2 with no associated murmurs Abdomen: Abdomen nondistended, there is no pain to palpation in any of the abdominal quadrants, no palpable masses. Extremities: There is no peripheral edema present at the lower extremities. Tenderness in the lower lumbar spine on deep palpation. Peripheral Pulses: 3+ Radial (R). 3+ Radial (L). 3+ Dorsalis pedis (R). 3+ Dorsalis pedis(L) Skin: No rashes or pruritus, there is no sacral edema present at this time. Neurological: Intact cranial nerves with no focal neurologic deficits. Normal motor strength and sensations in all extremities. Labs/Xrays Labs Test 04/18/25 21:39 04/18/25 17:22 Range/Units Prothrombin Time 10.8 9.3-11.8 sec Prothrombin Time INR 1.02 0.9-1.15 Activated Partial Thromboplast Time 28.5 24.5-34.5 SEC Lactic Acid Level 0.9 0.4-2.0 mmol/L Phosphorus Level 3.1 2.4-5.1 mg/dL Magnesium Level 1.8 1.6-2.6 mg/dL Total Bilirubin 0.4 0.2-1.0 mg/dL Direct Bilirubin 0.1 <0.3 mg/dL Aspartate Amino Transferase (AST) 16 13-40 U/L Alanine Aminotransferase (ALT) 12 7-40 U/L Alkaline Phosphatase 111 46-116 U/L C-Reactive Protein High Sensitivity 1.58 H <1.0 mg/dL Total Protein 6.8 5.7-8.2 g/dL Albumin 4.2 3.2-4.8 g/dL Triglycerides Level 86 < 150 mg/dL Cholesterol Level 166 < 200 mg/dL LDL Cholesterol 117 H < 100 mg/dL HDL Cholesterol 49 40-59 mg/dL Lipase 32 12-53 U/L Vitamin B12 Level 317 211-911 pg/mL Vitamin D 25-Hydroxy 38.0 30.0-100 ng/mL White Blood Count 11.6 H 4.4-10.8 10^3/uL Red Blood Count 5.12 4.0-5.20 10^6/uL Hemoglobin 15.2 12.2-16.2 g/dL Hematocrit 46.1 H 36.0-46.0 % Mean Corpuscular Volume 90.1 80.0-100.0 fL Mean Corpuscular Hemoglobin 29.7 28.0-32.0 pg Mean Corpuscular Hemoglobin Concent 33.0 32.0-36.0 g/dL Red Cell Distribution Width 14.1 11.8-14.3 % Platelet Count 246 140-450 10^3/uL Mean Platelet Volume 7.7 6.9-10.8 fL Neutrophils (%) (Auto) 65.0 37.0-80.0 % Lymphocytes (%) (Auto) 25.7 10.0-50.0 % Monocytes (%) (Auto) 7.5 0.0-12.0 % Eosinophils (%) (Auto) 1.3 0.0-7.0 % Basophils (%) (Auto) 0.5 0.0-2.0 % Neutrophils # (Auto) 7.5 1.6-8.6 10 ^3/uL Lymphocytes # (Auto) 3.0 0.4-5.4 10 ^3/uL Monocytes # (Auto) 0.9 0-1.3 10 ^3/uL Eosinophils # (Auto) 0.1 0-0.8 10 ^3/uL Basophils # (Auto) 0.1 0-0.2 10 ^3/uL Nucleated Red Blood Cells 0.1 % Sodium Level 142 136-145 mmol/L Potassium Level 3.8 3.5-5.1 mmol/L Chloride Level 105 98-107 mmol/L Carbon Dioxide Level 27 20-31 mmol/L Anion Gap 10 5-15 Blood Urea Nitrogen 7 L 9-23 mg/dL Creatinine 0.65 0.550-1.02 mg/dL Glomerular Filtration Rate Calc 121 >90 mL/min BUN/Creatinine Ratio 10.8 10.0-20.0 Serum Glucose 102 74-106 mg/dL Hemoglobin A1c 4.9 <5.7 % A1C Calcium Level 8.8 8.7-10.4 mg/dL Thyroid Stimulating Hormone (TSH) 2.04 0.55-4.78 uIU/mL SEPSIS Sepsis Screen Date sepsis recognized/suspect: Apr 18, 2025 Time Sepsis recognized/suspect: 1559 Recent Procedure: No On Antibiotic Therapy: No Respiratory Rate >20: No Heart Rate >90: Yes Temp<36 C (96.8 F) or >38.3 C: No SBP <90 or MAP <65 mmHG: No New Acute Mental Status Change: No Is the patient on CPAP, BIPAP,: No Physician Orders Complete Blood Count (04/19/25 04:00) Basic Metabolic Panel (04/19/25 04:00) Drug Screen (04/18/25 20:44) Urinalysis (04/18/25 20:44) Admit (04/19/25 01:21) Allergies (04/19/25 01:21) Code Status (04/19/25 01:21) Acetaminophen Tablet (Tylenol Tablet) (04/19/25 01:30) Ondansetron Hcl (Zofran) (04/19/25 01:30) Comprehensive Metabolic Panel (04/19/25 04:00) Condition: Serious (04/19/25 01:21) Morphine Sulfate Injection (04/19/25 01:30) Enoxaparin Sodium (Lovenox) (04/19/25 01:30) Stat Ekg For Chest Pain (04/19/25 01:21) Notify Md Of Changes From Base (04/19/25 01:21) Laboratory Tests Test 04/18/25 17:22 04/18/25 21:39 White Blood Count 11.6 10^3/uL (4.4-10.8) H Lactic Acid Level 0.9 mmol/L (0.4-2.0) Assessment/Plan Assessment/Plan Questionable cauda equina syndrome Rule out Spinal abscess Labs show elevated CRP. MRI spine ordered Bacterial culture, blood culture ordered Started on IV vancomycin. Patient developed mild allergic reaction to ceftriaxone, switch to levofloxacin 500 mg daily Patient was given Benadryl and steroids Jean catheter advised due to saddle anesthesia Spinal surgery consulted NPO overnight Pain management with morphine, acetaminophen Essential hypertension Continue metoprolol succinate 50 mg History of sciatica History of migraine History of asthma, without exacerbation Discontinue home medication (Qulipta), restart with PCP Chronic leukocytosis Ordered peripheral smear Morbid obesity BMI 40.3 A1c 4.9, mildly elevated LDL Counseled on lifestyle and diet Allergic reaction to Ceftriaxone Discontinuous cephalosporins Updated allergy record Patient was given Benadryl and steroids DIET: NPO DVT PROPHYLAXIS: Lovenox CODE STATUS: Goals of care discussed with patient at bedside for more than 36 minutes. Full code DISPOSITION: Med/surge Patient's status and plan discussed with the patient. Case discussed with Dr. Rajput. Plan discussed with: Patient (Nurses), Other (Nurses) My Orders Orders - KLAUS NUNEZ RESIDENT Procedure Category Date Status Time Complete Blood Count LAB 04/19/25 Logged 04:00 Basic Metabolic Panel LAB 04/19/25 Logged 04:00 Drug Screen LAB 04/18/25 Logged 20:44 Urinalysis LAB 04/18/25 Logged 20:44 Admit ADMIT 04/19/25 Transmitted 01:21 Allergies LYNN 04/19/25 In Process 01:21 Code Status CODE 04/19/25 Transmitted 01:21 Acetaminophen Tablet PHA 04/19/25 Logged (Tylenol Tablet) 01:30 Ondansetron Hcl PHA 04/19/25 Logged (Zofran) 01:30 Comprehensive LAB 04/19/25 Logged Metabolic Panel 04:00 Condition: Serious LYNN 04/19/25 In Process 01:21 Morphine Sulfate PHA 04/19/25 Logged Injection 01:30 Enoxaparin Sodium PHA 04/19/25 Logged (Lovenox) 01:30 Stat Ekg For Chest [facility] 04/19/25 In Process Pain 01:21 Notify Md Of Changes [facility] 04/19/25 In Process From Base 01:21 Date of Service: Apr 19, 2025 Billing Provider: CLIVE RAJPUT MD Common Visit Codes: 49454-[id number] INP/OBS CARE (HIGH) Secondary Visit Codes: [id number]-[id number] CARE PLAN 30 MINUTES KLAUS NUNEZ RESIDENT Apr 19, 2025 01:30 HANH ALFRED Apr 19, 2025 05:54
[2025-04-19] MEDS: SODIUM CHLORIDE 0.9% 1,000 ML IV ONE (03:10)
[2025-04-19] MEDS: ONDANSETRON HCL 4 MG/2 ML VIAL IV PRN (03:23)
[2025-04-19] MEDS: MORPHINE SULFATE INJ 2 MG/ml SYRG IV PRN (03:25)
[2025-04-19 03:37] VITALS: O2SAT 98
[2025-04-19] MEDS: VANCOMYCIN 1GM/250ML KIT 250 ML IV SCH (04:00)
[2025-04-19 06:31] LABS: Hematocrit 44.0 % (36.0-46.0); Hemoglobin 15.3 g/dL (12.2-16.2); Mean Corpuscular Hemoglobin 31.0 pg (28.0-32.0); Mean Corpuscular Volume 89.1 fL (80.0-100.0); Nucleated Red Blood Cells % 0.0 %
[2025-04-19 06:46] LABS: Anion Gap 12 (5-15); Carbon Dioxide 23 mmol/L (20-31); Chloride 105 mmol/L (98-107); Potassium 3.7 mmol/L (3.5-5.1); Sodium 140 mmol/L (136-145)
[2025-04-19 06:47] LABS: Calcium 8.8 mg/dL (8.7-10.4)
[2025-04-19 06:52] LABS: BUN/Creatinine Ratio 10.0 (10.0-20.0); Blood Urea Nitrogen 6 mg/dL (9-23); Glucose 122 mg/dL (74-106)
[2025-04-19 10:21] VITALS: BP 115/74; PULSE 83; RESP 18; TEMP 98.3; O2SAT 99
--- NOTE | 2025-04-19 10:59 | DVH ---
PROCEDURE: MRI LUMBAR SPINE WO CONTRAST INDICATION: S/P FALL R/O CAUDA EQUINA Exam Date: 04/19/2025 07:50 AM COMPARISON: CT LS SPINE WO CONTRAST on DOS: 04/18/25, CT LS SPINE WO CONTRAST on DOS: 03/28/25 TECHNIQUE: MRI lumbar spine without intravenous contrast. FINDINGS: Multilevel disc degeneration. Alignment: No spondylolisthesis identified. Vertebrae: Vertebral body height is well maintained without evidence of a recent compression fracture . Conus: Conus medullaris terminates at the L1 level. T12-L1: The disc configuration is normal. No spinal canal or neural foraminal stenosis. Facet arthros is. L1-2: The disc configuration is normal. No spinal canal or neural foraminal stenosis. Facet arthrosis . L2-3: The disc configuration is normal. No spinal canal or neural foraminal stenosis. Facet arthrosis . L3-4: The disc configuration is normal. No spinal canal or neural foraminal stenosis. Facet arthrosis . L4-5: Disc bulge. Mild bilateral subarticular zone stenosis. Moderate left foraminal stenosis. Facet arthrosis. L5-S1: Left extraforaminal disc protrusion. No spinal canal or neural foraminal stenosis. Facet arthr osis. IMPRESSION: Multilevel disc degeneration. Mild bilateral subarticular zone stenosis at L4-L5 level. Moderate left foraminal stenosis at L4-L5 level.
[2025-04-19] MEDS ORDERED: VANCOMYCIN 1GM/250ML KIT 250 ML IV SCH (11:00)
[2025-04-19 12:32] VITALS: PULSE 68; RESP 18; O2SAT 98
[2025-04-19 12:47] VITALS: BP 128/85; PULSE 86; RESP 18; TEMP 97.9; O2SAT 99
[2025-04-19] MEDS ORDERED: ATOG60TA PO (12:52)
[2025-04-19] MEDS ORDERED: METO-289 PO (12:52)
[2025-04-19] MEDS ORDERED: ATOG10TA PO (12:52)
[2025-04-19] MEDS ORDERED: SUMA50TA2 PO (12:53)
[2025-04-19] MEDS ORDERED: ALBU2TAB11 PO (12:53)
[2025-04-19] MEDS: METOPROLOL SUCCINATE XL 50 MG TAB PO SCH (13:22)
--- NOTE | 2025-04-19 13:40 | DVHINCON2 ---
Consultation - Surgical Date Seen: Apr 19, 2025 Referring Physician Referring Physician Attending Doctor: Truong Long Resident Resident Creating Document: KLAUS NUNEZ RESIDENT Reason for Consultation Low back pain, patient reporting saddle anesthesia/groin pain History of Present Illness History of Present Illness History of Present Illness This is a 29-year-old female with past medical history of hypertension, asthma, arthritis, migraine, presented to the ER with chief complain of lower back pain and perineal numbness. She reports that the pain started in the lower back in February 2025 after she sneezed more than 20 times. The pain is located in the lower back, and is described as burning, pressure-like, worsens with movements and somewhat relieved with rest. A month later, in March she started complaining of back pain radiating to the both lower extremities. Since last 1 week, she reports incoordination and loss of balance causing her to fall towards the right side. She has been using a walker to help with support and has not reported a fall. Today, with progressive worsening of pain in bilateral lower limb and associated loss of sensation in perineum, urged her visit to the ER. She reports not having any sensations in perineum while urinating and has been having difficulty with bowel movements. She does not complain of any burning micturition, pain. She has positive history of UTI, treated with nitrofurantoin for 7 days in 1st week of March. Today, she denies any fever, chills, abdominal pain, constipation, diarrhea, recent injury, sick contacts. Past Medical/Surgical History Past Medical/Surgical History PHx: Hypertension, Asthma (last exacerbation 10 years back), arthritis, migraine PSHx: section, left foot cyst removal Family and Social History Family and Social History Family history: Significant for breast cancer in both maternal and paternal grandmothers Social history: Denies smoking, recreational drug use. Occasional alcohol use. Lives in home with family. Full code. Next to kin . Allergies and medications Allergies: Coded Allergies: Morphine (Verified Allergy, Mild, Localized Rash, 04/19/25) Naproxen (Verified Allergy, Unknown, 12/02/24) Home Meds Active Scripts Hydrocodone-Acetaminophen (Hydrocodone Bitartrate/AC 5-325 mg) 1 Tab Tab, 1 TAB PO QID PRN for 4 Days, #16 TAB Prov:GIL ROLDAN MD 03/28/25 Meclizine HCl (Meclizine 25) 25 Mg Tab, 25 MG PO DAILY for 5 Days, #5 TAB Prov:BILL HAM MD 12/03/24 Reported Medications Sumatriptan Succinate (Imitrex) 50 Mg Tab, 1 TAB PO UD, #9 TAB 1 Refill 04/19/25 Albuterol Sulfate (Albuterol Sulfate) 2 Mg Tab, 2 MG PO Q6HP PRN for SHORTNESS OF BREATH, MG 04/19/25 Atogepant (Qulipta) 10 Mg Tab, PO DAILY, TAB 04/19/25 Metoprolol Succinate (Metoprolol Succinate Er) 50 Mg Tab, 1 TAB PO 04/19/25 Atogepant (Qulipta) 60 Mg Tab, 1 TAB PO DAILY 04/19/25 Review of systems Review of Systems: CVS:Abnormal (Hypertension), RESPIRATORY:Abnormal (asthma), NEURO:Abnormal (migrain, low back pain and midline saddle anesthesia reported per patient/groin pain) Examination Vital signs Imaging: ORDERING PHYSICIAN: KLAUS NUNEZ RESIDENT PROCEDURE(s): MSL - LUMBAR SPINE WO CONTRAST REASON: S/P FALL R/O CAUDA EQUINA ORDER NUMBER(s): [id number], ACCESSION NUMBER(s): [id number] PROCEDURE: MRI LUMBAR SPINE WO CONTRAST INDICATION: S/P FALL R/O CAUDA EQUINA Exam Date: 04/19/2025 07:50 AM COMPARISON: CT LS SPINE WO CONTRAST on DOS: 04/18/25, CT LS SPINE WO CONTRAST on DOS: 03/28/25 TECHNIQUE: MRI lumbar spine without intravenous contrast. FINDINGS: Multilevel disc degeneration. Alignment: No spondylolisthesis identified. Vertebrae: Vertebral body height is well maintained without evidence of a recent compression fracture. Conus: Conus medullaris terminates at the L1 level. T12-L1: The disc configuration is normal. No spinal canal or neural foraminal stenosis. Facet arthrosis. L1-2: The disc configuration is normal. No spinal canal or neural foraminal stenosis. Facet arthrosis. L2-3: The disc configuration is normal. No spinal canal or neural foraminal stenosis. Facet arthrosis. L3-4: The disc configuration is normal. No spinal canal or neural foraminal stenosis. Facet arthrosis. L4-5: Disc bulge. Mild bilateral subarticular zone stenosis. Moderate left foraminal stenosis. Facet arthrosis. L5-S1: Left extraforaminal disc protrusion. No spinal canal or neural foraminal stenosis. Facet arthrosis. IMPRESSION: Multilevel disc degeneration. Mild bilateral subarticular zone stenosis at L4-L5 level. Moderate left foraminal stenosis at L4-L5 level. RING PHYSICIAN: GIL ROLDAN MD PROCEDURE(s): LS2CT - LS SPINE WO CONTRAST REASON: lower back pain with leg weakness and saddle anesthesia ORDER NUMBER(s): [id number], ACCESSION NUMBER(s): [id number] EXAM: CT LS SPINE WO CONTRAST INDICATION: lower back pain with leg weakness and saddle anesthesia TECHNIQUE: Axial images of the lumbar spine have been obtained along with coronal and sagittal reformatted images. CT scans at this facility use dose modulation, iterative reconstruction, and/or weight based dosing when appropriate to reduce radiation dose to as low as reasonably achievable. COMPARISON: CT THORACIC SPINE WO CONTRAS on DOS: 03/28/25, CT LS SPINE WO CONTRAST on DOS: 03/28/25 Dose: CTDIvol: 33.59 mGy, DLP: 1192.3 mGy.cm FINDINGS: There is no acute displaced fracture. There is minimal endplate osteophytosis. Intervertebral disc heights are well-maintained. The paraspinal soft tissues are unremarkable. LEVEL BY LEVEL DISCUSSION BELOW: T12-L1: Unremarkable. L1-L2: Unremarkable. L2-L3: Unremarkable. L3-L4: Unremarkable. L4-L5: A mild broad-based disc protrusion effaces the thecal sac without significant spinal canal or neural foraminal stenosis. L5-S1: There is a mild broad-based disc protrusion without significant spinal canal or neural foraminal narrowing. IMPRESSION: 1. No acute displaced fracture. 2. Minimal degenerative changes of the lumbar spine as detailed. If clinical symptoms persist, MRI may be beneficial in further assessment. Vital Signs Date Time Temp Pulse Resp B/P (MAP) Pulse Ox O2 Delivery O2 Flow Rate FiO2 9/23/25 12:47 97.9 86 18 128/85 (99) 99 97.9 04/19/25 12:32 Room Air* 0 21 Medications Current Medications Medications (Trade) Dose Ordered Sig/Mario Route PRN Reason Start Time Stop Time Status Last Admin Acetaminophen (Tylenol Tablet) 325 mg Q4HP PRN PO MILD PAIN (1-3 PAIN SCALE) 04/19/25 01:30 Ondansetron HCl (Zofran) 4 mg Q4HP PRN IV NAUSEA / VOMITING 04/19/25 01:30 04/19/25 03:23 Morphine Sulfate 2 mg Q4HPRN PRN IV SEVERE PAIN (7-10 PAIN SCALE) 04/19/25 01:30 04/19/25 12:32 DC 04/19/25 10:23 Enoxaparin Sodium (Lovenox) 40 mg DAILY SC 04/19/25 01:30 Ceftriaxone Sodium 50 ml @ 100 mls/hr DAILY@0200 IV 04/20/25 02:00 04/19/25 03:45 DC Vancomycin HCl 0 ml @ 0 mls/hr UD IV 04/19/25 01:30 Cancel Vancomycin HCl 250 ml @ 125 mls/hr Q2H IV 04/19/25 02:15 04/19/25 06:14 DC 04/19/25 06:59 Levofloxacin/ Dextrose 100 ml @ 100 mls/hr DAILY IV 04/19/25 10:00 Cancel Metoprolol Succinate (Toprol Xl) 50 mg DAILY PO 04/19/25 10:00 Vancomycin HCl 250 ml @ 200 mls/hr Q12H IV 04/19/25 11:00 Cancel Tramadol HCl (Ultram) 50 mg Q4HP PRN PO SEVERE PAIN (7-10 PAIN SCALE) 04/19/25 12:30 UNV Sumatriptan Succinate (Imitrex Tablet) 100 mg DAILYPRN PRN PO FOR HEADACHE 04/20/25 00:00 UNV Laboratory Labs Test 04/19/25 10:10 04/19/25 06:11 04/19/25 05:41 04/18/25 21:39 Range/Units Erythrocyte Sedimentation Rate 20 0-20 mm/hr Sodium Level 140 136-145 mmol/L Potassium Level 3.7 3.5-5.1 mmol/L Chloride Level 105 98-107 mmol/L Carbon Dioxide Level 23 20-31 mmol/L Anion Gap 12 5-15 Blood Urea Nitrogen 6 L 9-23 mg/dL Creatinine 0.60 0.550-1.02 mg/dL Glomerular Filtration Rate Calc 123 >90 mL/min BUN/Creatinine Ratio 10.0 10.0-20.0 Serum Glucose 122 H 74-106 mg/dL Calcium Level 8.8 8.7-10.4 mg/dL White Blood Count 10.9 H 4.4-10.8 10^3/uL Red Blood Count 4.94 4.0-5.20 10^6/uL Hemoglobin 15.3 12.2-16.2 g/dL Hematocrit 44.0 36.0-46.0 % Mean Corpuscular Volume 89.1 80.0-100.0 fL Mean Corpuscular Hemoglobin 31.0 28.0-32.0 pg Mean Corpuscular Hemoglobin Concent 34.8 32.0-36.0 g/dL Red Cell Distribution Width 14.0 11.8-14.3 % Platelet Count 233 140-450 10^3/uL Mean Platelet Volume 7.9 6.9-10.8 fL Neutrophils (%) (Auto) 74.1 37.0-80.0 % Lymphocytes (%) (Auto) 17.0 10.0-50.0 % Monocytes (%) (Auto) 8.0 0.0-12.0 % Eosinophils (%) (Auto) 0.5 0.0-7.0 % Basophils (%) (Auto) 0.4 0.0-2.0 % Neutrophils # (Auto) 8.1 1.6-8.6 10 ^3/uL Lymphocytes # (Auto) 1.8 0.4-5.4 10 ^3/uL Monocytes # (Auto) 0.9 0-1.3 10 ^3/uL Eosinophils # (Auto) 0.1 0-0.8 10 ^3/uL Basophils # (Auto) 0 0-0.2 10 ^3/uL Nucleated Red Blood Cells 0.0 % Prothrombin Time 10.8 9.3-11.8 sec Prothrombin Time INR 1.02 0.9-1.15 Activated Partial Thromboplast Time 28.5 24.5-34.5 SEC Lactic Acid Level 0.9 0.4-2.0 mmol/L Phosphorus Level 3.1 2.4-5.1 mg/dL Magnesium Level 1.8 1.6-2.6 mg/dL Total Bilirubin 0.4 0.2-1.0 mg/dL Direct Bilirubin 0.1 <0.3 mg/dL Aspartate Amino Transferase (AST) 16 13-40 U/L Alanine Aminotransferase (ALT) 12 7-40 U/L Alkaline Phosphatase 111 46-116 U/L C-Reactive Protein High Sensitivity 1.58 H <1.0 mg/dL Total Protein 6.8 5.7-8.2 g/dL Albumin 4.2 3.2-4.8 g/dL Triglycerides Level 86 < 150 mg/dL Cholesterol Level 166 < 200 mg/dL LDL Cholesterol 117 H < 100 mg/dL HDL Cholesterol 49 40-59 mg/dL Lipase 32 12-53 U/L Vitamin B12 Level 317 211-911 pg/mL Vitamin D 25-Hydroxy 38.0 30.0-100 ng/mL Test 04/18/25 17:22 Range/Units Hemoglobin A1c 4.9 <5.7 % A1C Thyroid Stimulating Hormone (TSH) 2.04 0.55-4.78 uIU/mL Examination: GENERAL:Normal, HEENT:Normal, NECK:Normal, LUNGS:Normal, CVS:Normal, ABDOMEN:Normal, MSK:Normal, SKIN:Normal, NEURO:Abnormal (Low back pain following the L5 nerve pattern radiating to bilateral legs hips down to her thighs, 4/5 strength bilaterally lower extremities), :Normal (Patient is currently continent bowel and bladder) Problem List/Assessment/Plan Problems: (1) Degenerative disc disease (DDD) of lumbosacral region with discogenic back pain and leg pain (2) Lumbar stenosis with neurogenic claudication (3) Foraminal stenosis of lumbar region (4) Lower back pain (5) Muscle weakness Assessment and Plan Multilevel disc degeneration. Mild bilateral subarticular zone stenosis at L4-L5 level. Moderate left foraminal stenosis at L4-L5 level. Continue care and support per admitting team's discretion Physical therapy evaluation, treatment recommendations and safe discharge planning recommendations Effective pain management including muscle relaxers if the patient is complaining of muscle spasms Order placed for Decadron 10 mg x 1 IV, cyclobenzaprine 10 mg q.8 hours p.o. Discussed treatment options with the patient patient is agreeable to start conservative management, PCP to start physical therapy lumbar specific posture, strengthening, flexibility We will consider initiating pain management, discussion with PCP If conservative measures fail patient will need a referral to spine surgery No barriers to discharge with the patient's pain is under control from a spine surgery perspective Call with questions Hernandez Ba [facility] Orthopaedic Spine Surgery nurse practitioner For Dr Abraham Weinberg Patient was examined, chart reviewed, labs evaluated, and diagnostic studies and findings analyzed. Case was discussed with Dr. Zackary Weinberg who formulated the plan of care. This medical document was created using an electronic medical record system with [employer] dictation system. Although this document has been carefully reviewed, there might still be some phonetic and typographical errors. These areas are purely typographical due to imperfections of the software programs, and do not reflect any compromise in the patient's medical care. Plan discussed with Plan discussed with: Patient, Spouse, Other (Brooks Ba RN) Visit Coding Surgery Date of Service if different f: Apr 19, 2025 Billing Provider: KJ BA NP Surgery Visit Codes: 88419 - INP CONSULT <80 MIN KJ BA NP Apr 19, 2025 13:40
[2025-04-19 16:58] VITALS: BP 117/78; PULSE 91; RESP 16; TEMP 97.9; O2SAT 100
[2025-04-19] MEDS: ACETAMINOPHEN 325 MG TAB PO PRN (19:05)
--- NOTE | 2025-04-19 19:10 | DVHPNRES ---
Progress Note Date Seen: Apr 19, 2025 Resident Creating Document: JUNITO MENDES Medical Necessity Reason Pt with a Central, PICC or Fol: No Subjective Review of Systems The patient is a 29-year-old female with a past medical history of hypertension, asthma, arthritis, and migraines who presented to [facility] ED with complaints of severe lower back pain and perineal numbness since early March 2025. She describes numbness extending from her hips to her feet, including the groin, thighs, buttocks, and saddle region. She reports that the pain started in the lower back in February 2025 and described as burning, pressure-like, worsens with movements and somewhat relieved with rest. She reports inability to feel urination, only hearing it, and is experiencing spasms in her right leg. he has been using a walker to help with support and has not reported a fall. Today, with progressive worsening of pain in bilateral lower limb and associated loss of sensation in perineum, urged her visit to the ER. On examination, the patient was in significant distress due to lower back pain and saddle anesthesia. She has been admitted for further management and evaluation by spinal surgery. she denies any fever, chills, abdominal pain, constipation, diarrhea, recent injury, sick contacts. Past medical history: Hypertension, Asthma (last exacerbation 10 years back), arthritis, migraine Past surgical history: section, left foot cyst removal Family history: Significant for breast cancer in both maternal and paternal grandmothers Social history: Denies smoking, recreational drug use. Occasional alcohol use. Lives in home with family. Full code. Next to kin . Home medication: Qulipta, tramadol, Metoprolol Allergies: Coded Allergies: Naproxen (Verified Allergy, Unknown, 12/02/24) Patient seen and examined at bedside. Patient is alert and oriented to time, place person and responding to all questions. Eyes: No Pain, No Vision change, No Conjunctivae inflammation, No Eyelid inflammation, No Other, No Redness ENT: No Ear pain, No Ear discharge, No Nose pain, No Nose discharge, No Nose congestion, No Mouth pain, No Mouth swelling, No Throat pain, No Throat swelling, No Other Cardiovascular: No Chest Pain, No Palpitations, No Orthopnea, No Paroxysmal No Dyspnea, No Edema, No Lt Headedness, No Other Respiratory: No Cough, No Dry, No Shortness of breath, No SOB with exertion, No Wheezing, No Hemoptysis, No Pleuritic Pain, No Sputum, No Other Gastrointestinal: No Nausea, No Vomiting, No Abdominal Pain, No Diarrhea, No Constipation, No Melena, No Hematochezia, No Other Genitourinary: No Dysuria, No Frequency, No Incontinence, No Hematuria, No Retention, No Other Musculoskeletal: Back pain, leg pain, foot pain. No other, No neck pain, No shoulder pain, No arm pain, No hand pain Skin: No Rash, No Lesions, No Jaundice, No Bruising, No Other Objective vital signs Vital Sign Date Time Temp Pulse Resp B/P (MAP) Pulse Ox O2 Delivery O2 Flow Rate FiO2 04/19/25 16:58 97.9 91 16 117/78 (91) 100 97.9 04/19/25 12:32 Room Air* 0 21 medications Current Medications Medications Dose Ordered Sig/Mario Route Start Time Stop Time Status Last Admin Dose Admin Acetaminophen 325 mg Q4HP PRN PO 04/19/25 01:30 04/19/25 19:05 325 MG Ondansetron HCl 4 mg Q4HP PRN IV 04/19/25 01:30 04/19/25 03:23 4 MG Enoxaparin Sodium 40 mg DAILY SC 04/19/25 01:30 Vancomycin HCl 0 ml @ 0 mls/hr UD IV 04/19/25 01:30 Cancel Levofloxacin/ Dextrose 100 ml @ 100 mls/hr DAILY IV 04/19/25 10:00 Cancel Metoprolol Succinate 50 mg DAILY PO 04/19/25 10:00 Vancomycin HCl 250 ml @ 200 mls/hr Q12H IV 04/19/25 11:00 Cancel Tramadol HCl 50 mg Q4HP PRN PO 04/19/25 12:30 04/19/25 16:43 50 MG Sumatriptan Succinate 100 mg DAILYPRN PRN PO 04/20/25 00:00 Cyclobenzaprine HCl 10 mg TID PO 04/19/25 22:00 Examination General: Patient alert and oriented in person, place and time. Patient following commands. HEENT: Normocephalic, atraumatic, moist mucous membranes Respiratory/pulmonary: Clear lungs bilaterally, vesicular murmurs present in almost all lung stevens, no associated crackles or wheezes. Cardiovascular: Normal heart sounds S1 and S2 with no associated murmurs Abdomen: Abdomen nondistended, there is no pain to palpation in any of the abdominal quadrants, no palpable masses. Extremities: There is no peripheral edema present at the lower extremities. Tenderness in the lower lumbar spine on deep palpation. Peripheral Pulses: 3+ Radial (R). 3+ Radial (L). 3+ Dorsalis pedis (R). 3+ Dorsalis pedis(L) Skin: No rashes or pruritus, there is no sacral edema present at this time. Neurological: Intact cranial nerves with no focal neurologic deficits. Normal motor strength and sensations in all extremities. laboratory and microbiology Laboratory Tests 04/19/25 06:11 04/19/25 05:41 Test 04/19/25 06:11 Range/Units Serum Glucose 122 H 74-106 mg/dL Labs and/or images reviewed: Labs reviewed by me, Image(s) reviewed by me Problem List/Assessment/Plan Problem List/Assessment/Plan Multilevel disc degeneration of the lumbar spine with stenosis at L4-L5 Cauda equina syndrome ruled out Rule out Spinal abscess -Labs show elevated CRP. -Lumbar Spine MRI: Multilevel disc degeneration. Mild bilateral subarticular zone stenosis at L4-L5 level. Moderate left foraminal stenosis at L4-L5 level. -Lumbar Spine CT: 1. No acute displaced fracture. 2. Minimal degenerative changes of the lumbar spine as detailed. If clinical symptoms persist, MRI may be beneficial in further assessment. -Patient was given Benadryl and steroids -Spinal surgery consulted, recommended conservative management with physical therapy and muscle relaxants -Pain management with acetaminophen, tramadol -Cyclobenzaprine 10mg History of migraine - Imitrex 100 mg daily p.r.n. - at home on Qulipta - metoprolol succinate Chronic leukocytosis -Ordered peripheral smear Morbid obesity -BMI 40.3 -HbA1c 4.9, mildly elevated LDL -Counseled on lifestyle and diet Allergic reaction to Ceftriaxone -Discontinuous cephalosporins -Updated allergy record -Patient was given Benadryl and steroids PUD prophylaxis: protonix 40mg DVT PROPHYLAXIS: Lovenox Goals of care: Full code, discussed for >23 minutes on 04/19/25 Plan discussed with patient Plan discussed with Dr. Lopez Plan discussed with: Patient My Orders My Orders Orders - JUNITO MENDES Procedure Category Date Status Time Basic Metabolic Panel LAB 04/20/25 Verified 04:00 Date of Service: Apr 19, 2025 Billing Provider: PAGE LOPEZ MD Common Visit Codes: [id number] INP/OBS CARE(HIGH) Secondary Visit Codes: [id number] CARE PLAN 30 MINUTES JUNITO MENDES RESIDENT Apr 19, 2025 19:10 AMOL HOLLIDAY RESIDENT Apr 19, 2025 20:41 PAGE LOPEZ MD Apr 23, 2025 00:10
[2025-04-19] MEDS: METOPROLOL SUCCINATE XL 50 MG TAB PO ONE (21:41)
[2025-04-19 21:48] VITALS: BP 127/87; PULSE 113; RESP 18; TEMP 98; O2SAT 99
[2025-04-19 21:51] LABS: Urine Protein, UAD Negative (Negative)
[2025-04-19 21:58] LABS: Opiate Scree,Urine Neg (NEGATIVE)
[2025-04-19] MEDS: CYCLOBENZAPRINE HCL 10 MG TAB PO SCH (22:00)
[2025-04-19 22:02] LABS: Amphetamine Screen, Urine Neg (NEGATIVE); Barbiturate Scree,Urine Neg (NEGATIVE); Benzodiazephine Screen, Urine Neg (NEGATIVE); Cannabinoid Screen, Urine Neg (NEGATIVE); Cocaine Screen, Urine Neg (NEGATIVE); Phencyclidine Screen, Urine Neg (NEGATIVE)
[2025-04-20 01:00] VITALS: BP 117/70; PULSE 105; RESP 18; TEMP 98; O2SAT 99
[2025-04-20 05:00] VITALS: BP 113/75; PULSE 97; RESP 18; TEMP 97.6; O2SAT 98
[2025-04-20 07:04] LABS: Hematocrit 44.2 % (36.0-46.0); Hemoglobin 15.2 g/dL (12.2-16.2); Mean Corpuscular Hemoglobin 30.4 pg (28.0-32.0); Mean Corpuscular Volume 88.8 fL (80.0-100.0); Nucleated Red Blood Cells % 0.0 %
[2025-04-20 07:10] LABS: Chloride 104 mmol/L (98-107); Potassium 3.9 mmol/L (3.5-5.1); Sodium 139 mmol/L (136-145)
[2025-04-20 07:11] LABS: Anion Gap 10 (5-15); Calcium 9.3 mg/dL (8.7-10.4); Carbon Dioxide 25 mmol/L (20-31)
[2025-04-20 07:16] LABS: BUN/Creatinine Ratio 11.3 (10.0-20.0)
[2025-04-20 07:23] LABS: Blood Urea Nitrogen 7 mg/dL (9-23); Glucose 166 mg/dL (74-106)
[2025-04-20 08:00] VITALS: O2SAT 100
[2025-04-20 09:00] VITALS: BP 111/76; PULSE 85; RESP 17; TEMP 97.6; O2SAT 100
[2025-04-20] MEDS ORDERED: IBUP1TAB5 PO (10:30)
[2025-04-20] MEDS ORDERED: CYCL-839 PO (10:30)
[2025-04-20 14:07] LABS: Anti-Nuclear Antibody Direct Negative (Negative)
--- NOTE | 2025-04-20 16:46 | DVHDSRES ---
Discharge Summary Date of Admission Resident Creating Document: JUNITO MENDES RESIDENT Apr 19, 2025 at 01:21 Date of Discharge: Apr 20, 2025 Admitting Diagnosis severe lower back pain and perineal numbness Labs/Diagnostic Data: Laboratory Results Test 04/20/25 06:20 04/19/25 21:00 04/19/25 10:10 04/18/25 21:39 White Blood Count 10.1 10^3/uL (4.4-10.8) Red Blood Count 4.98 10^6/uL (4.0-5.20) Hemoglobin 15.2 g/dL (12.2-16.2) Hematocrit 44.2 % (36.0-46.0) Mean Corpuscular Volume 88.8 fL (80.0-100.0) Mean Corpuscular Hemoglobin 30.4 pg (28.0-32.0) Mean Corpuscular Hemoglobin Concent 34.3 g/dL (32.0-36.0) Red Cell Distribution Width 14.0 % (11.8-14.3) Platelet Count 289 10^3/uL (140-450) Mean Platelet Volume 8.2 fL (6.9-10.8) Neutrophils (%) (Auto) 86.3 % (37.0-80.0) Lymphocytes (%) (Auto) 9.1 % (10.0-50.0) Monocytes (%) (Auto) 4.5 % (0.0-12.0) Eosinophils (%) (Auto) 0.0 % (0.0-7.0) Basophils (%) (Auto) 0.1 % (0.0-2.0) Neutrophils # (Auto) 8.8 10 ^3/uL (1.6-8.6) Lymphocytes # (Auto) 0.9 10 ^3/uL (0.4-5.4) Monocytes # (Auto) 0.5 10 ^3/uL (0-1.3) Eosinophils # (Auto) 0 10 ^3/uL (0-0.8) Basophils # (Auto) 0 10 ^3/uL (0-0.2) Nucleated Red Blood Cells 0.0 % Sodium Level 139 mmol/L (136-145) Potassium Level 3.9 mmol/L (3.5-5.1) Chloride Level 104 mmol/L (98-107) Carbon Dioxide Level 25 mmol/L (20-31) Anion Gap 10 (5-15) Blood Urea Nitrogen 7 mg/dL (9-23) Creatinine 0.62 mg/dL (0.550-1.02) Glomerular Filtration Rate Calc 122 mL/min (>90) BUN/Creatinine Ratio 11.3 (10.0-20.0) Serum Glucose 166 mg/dL (74-106) Calcium Level 9.3 mg/dL (8.7-10.4) Anti-Nuclear Antibody Screen Negative (Negative) Urine Color Light-yellow (Yellow) Urine Clarity Clear (Clear) Urine pH 8.0 (5.0-9.0) Urine Specific [place] 1.018 (1.001-1.035) Urine Protein Negative (Negative) Urine Ketones Trace (Negative) Urine Blood Negative /uL (Negative) Urine Nitrite Negative (Negative) Urine Bilirubin Negative (Negative) Urine Urobilinogen Normal mg/dL (Negative) Urine Leukocyte Esterase Negative /uL (Negative) Urine RBC 3 /hpf (0 - 4) Urine Microscopic WBC 1 /HPF (0-5) Urine Squamous Epithelial Cells Few /hpf (<5) Urine Bacteria None seen /hpf (None Seen) Urine Glucose Normal mg/dL (Normal) Urine Opiates Screen Neg (NEGATIVE) Urine Fentanyl Screen Neg (NEGATIVE) Urine Barbiturates Screen Neg (NEGATIVE) Urine Phencyclidine Screen Neg (NEGATIVE) Urine Amphetamines Screen Neg (NEGATIVE) Urine Benzodiazepines Screen Neg (NEGATIVE) Urine Cocaine Screen Neg (NEGATIVE) Urine Cannabinoids Screen Neg (NEGATIVE) Erythrocyte Sedimentation Rate 20 mm/hr (0-20) Prothrombin Time 10.8 sec (9.3-11.8) Prothrombin Time INR 1.02 (0.9-1.15) Activated Partial Thromboplast Time 28.5 SEC (24.5-34.5) Lactic Acid Level 0.9 mmol/L (0.4-2.0) Phosphorus Level 3.1 mg/dL (2.4-5.1) Magnesium Level 1.8 mg/dL (1.6-2.6) Total Bilirubin 0.4 mg/dL (0.2-1.0) Direct Bilirubin 0.1 mg/dL (<0.3) Aspartate Amino Transferase (AST) 16 U/L (13-40) Alanine Aminotransferase (ALT) 12 U/L (7-40) Alkaline Phosphatase 111 U/L (46-116) C-Reactive Protein High Sensitivity 1.58 mg/dL (<1.0) Total Protein 6.8 g/dL (5.7-8.2) Albumin 4.2 g/dL (3.2-4.8) Triglycerides Level 86 mg/dL (< 150) Cholesterol Level 166 mg/dL (< 200) LDL Cholesterol 117 mg/dL (< 100) HDL Cholesterol 49 mg/dL (40-59) Lipase 32 U/L (12-53) Vitamin B12 Level 317 pg/mL (211-911) Vitamin D 25-Hydroxy 38.0 ng/mL (30.0-100) Test 04/18/25 17:22 Hemoglobin A1c 4.9 % A1C (<5.7) Thyroid Stimulating Hormone (TSH) 2.04 uIU/mL (0.55-4.78) Other Laboratory Tests 04/20/25 06:20 Brief Hx & Hospital Course: The patient is a 29-year-old female with a past medical history of hypertension, asthma, arthritis, and migraines who presented to the [facility] Emergency Department with complaints of severe lower back pain and perineal numbness, which began in early March 2025. She reported that the numbness extended from her hips to her feet, including the groin, thighs, buttocks, and saddle region. The lower back pain initially started in February 2025 and was described as burning and pressure-like in nature, worsened by movement and somewhat relieved with rest. She also reported an inability to feel urination and noted spasms in her right leg. She had been using a walker for support but denied any recent falls. On the day of admission, she experienced progressive worsening of bilateral lower limb pain and further loss of perineal sensation, prompting her visit to the emergency department. On examination, the patient was in significant distress due to lower back pain and saddle anesthesia. She was admitted for further evaluation and management by the spinal surgery team. She denied fever, chills, abdominal pain, constipation, diarrhea, recent trauma, or sick contacts. Imaging studies included a lumbar spine MRI, which revealed multilevel disc degeneration with mild bilateral subarticular zone stenosis and moderate left foraminal stenosis at the L4-L5 level. A lumbar spine CT showed no acute displaced fractures and minimal degenerative changes. Laboratory workup revealed elevated CRP. Cauda equina syndrome was ruled out, and spinal abscess remained a differential diagnosis. The patient was treated with Benadryl and steroids for symptom relief. Spinal surgery recommended conservative management with physical therapy and muscle relaxants. Pain was managed with acetaminophen, tramadol, and cyclobenzaprine 10 mg. Her history of migraines was managed with Imitrex 100 mg as needed, and she continued her home medications, including Qulipta and metoprolol succinate. Chronic leukocytosis was noted, and a peripheral smear was ordered for further evaluation. The patient was also noted to have morbid obesity with a BMI of 40.3, mildly elevated LDL, and an HbA1c of 4.9%. She was counseled on lifestyle modifications and dietary changes. Additionally, she reported an allergic reaction to ceftriaxone in the past, which was documented and cephalosporins were discontinued. She was treated with Benadryl and steroids for the allergic response. At discharge, the patient was stable. Discharge instructions were provided, and she was encouraged to follow up with her primary care provider and spinal surgery as needed. All questions were addressed, and the patient verbalized understanding of her care plan. Operations or Procedures PATIENT: MORIAH CLIFTON ACCT: [id number] UNIT: [id number] : 1995 LOC: OVERFLOW ROOM / BED: [facility]-ER / A AGE / SEX: 29 / F ADM STATUS: ADM IN SERVICE 0129 ORDERING PHYSICIAN: KLAUS NUNEZ RESIDENT PROCEDURE(s): MSL - LUMBAR SPINE WO CONTRAST REASON: S/P FALL R/O CAUDA EQUINA ORDER NUMBER(s): [id number], ACCESSION NUMBER(s): [id number] PROCEDURE: MRI LUMBAR SPINE WO CONTRAST INDICATION: S/P FALL R/O CAUDA EQUINA Exam Date: 04/19/2025 07:50 AM COMPARISON: CT LS SPINE WO CONTRAST on DOS: 04/18/25, CT LS SPINE WO CONTRAST on DOS: 03/28/25 TECHNIQUE: MRI lumbar spine without intravenous contrast. FINDINGS: Multilevel disc degeneration. Alignment: No spondylolisthesis identified. Vertebrae: Vertebral body height is well maintained without evidence of a recent compression fracture. Conus: Conus medullaris terminates at the L1 level. T12-L1: The disc configuration is normal. No spinal canal or neural foraminal stenosis. Facet arthrosis. L1-2: The disc configuration is normal. No spinal canal or neural foraminal stenosis. Facet arthrosis. L2-3: The disc configuration is normal. No spinal canal or neural foraminal stenosis. Facet arthrosis. L3-4: The disc configuration is normal. No spinal canal or neural foraminal stenosis. Facet arthrosis. L4-5: Disc bulge. Mild bilateral subarticular zone stenosis. Moderate left foraminal stenosis. Facet arthrosis. L5-S1: Left extraforaminal disc protrusion. No spinal canal or neural foraminal stenosis. Facet arthrosis. IMPRESSION: Multilevel disc degeneration. Mild bilateral subarticular zone stenosis at L4-L5 level. Moderate left foraminal stenosis at L4-L5 level. PATIENT: MORIAH CLIFTON ACCT: [id number] UNIT: [id number] : 1995 LOC: ER ROOM / BED: / AGE / SEX: 29 / F ADM STATUS: REG ER SERVICE [id number] ORDERING PHYSICIAN: GIL ROLDAN MD PROCEDURE(s): LS2CT - LS SPINE WO CONTRAST REASON: lower back pain with leg weakness and saddle anesthesia ORDER NUMBER(s): [id number], ACCESSION NUMBER(s): [id number] EXAM: CT LS SPINE WO CONTRAST INDICATION: lower back pain with leg weakness and saddle anesthesia TECHNIQUE: Axial images of the lumbar spine have been obtained along with coronal and sagittal reformatted images. CT scans at this facility use dose modulation, iterative reconstruction, and/or weight based dosing when appropriate to reduce radiation dose to as low as reasonably achievable. COMPARISON: CT THORACIC SPINE WO CONTRAS on DOS: 03/28/25, CT LS SPINE WO CONTRAST on DOS: 03/28/25 Dose: CTDIvol: 33.59 mGy, DLP: 1192.3 mGy.cm FINDINGS: There is no acute displaced fracture. There is minimal endplate osteophytosis. Intervertebral disc heights are well-maintained. The paraspinal soft tissues are unremarkable. LEVEL BY LEVEL DISCUSSION BELOW: T12-L1: Unremarkable. L1-L2: Unremarkable. L2-L3: Unremarkable. L3-L4: Unremarkable. L4-L5: A mild broad-based disc protrusion effaces the thecal sac without significant spinal canal or neural foraminal stenosis. L5-S1: There is a mild broad-based disc protrusion without significant spinal canal or neural foraminal narrowing. IMPRESSION: 1. No acute displaced fracture. 2. Minimal degenerative changes of the lumbar spine as detailed. If clinical symptoms persist, MRI may be beneficial in further assessment. 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 Cauda equina syndrome ruled out Ruled out Spinal abscess History of migraine Chronic leukocytosis Morbid obesity Allergic reaction to Ceftriaxone Discharge Disposition: Home Discharge Instruct/Medications Diet: Regular Activity: No Restrictions, As Tolerated Follow Up/Referral: fu with pcp Medications: continue cyclebenzaprine, tramadol Scheduled Atogepant (Qulipta), 1 TAB PO DAILY, (Reported) Cyclobenzaprine Hcl (Cyclobenzaprine Hcl), 10 MG PO TID Ibuprofen Micronized (Ibuprofen), 600 MG PO BID Meclizine HCl (Meclizine 25), 25 MG PO DAILY Sumatriptan Succinate (Imitrex), 1 TAB PO UD, (Reported) Miscellaneous Medications Metoprolol Succinate (Metoprolol Succinate Er), 1 TAB PO, (Reported) Discontinued Medications Albuterol Sulfate (Albuterol Sulfate), 2 MG PO Q6HP PRN for SHORTNESS OF BREATH, (Reported) Atogepant (Qulipta), Unknown Dose PO DAILY, (Reported) Hydrocodone-Acetaminophen (Hydrocodone Bitartrate/AC 5-325 mg), 1 TAB PO QID PRN Discharge Statement: "Patient was advised to return to the ER or call 911 if any headaches, dizziness, shortness of breath, chest pain, abdominal pain, bleeding, fevers, or worsening of medical condition. Patient was counseled about treatment plan, medications, possible side effects, patientverbalized understanding. All questions were answered to the best of my ability. This discharge took greater then 30 minutes in planning, reviewing documentation, counseling the patient, and discussing with other team members." ASSESSMENT ASSESSMENT Assessment spinal stenosis Date of Service: Apr 20, 2025 Billing Provider: PAGE ONEAL MD Common Visit Codes: 10584-XSB/OBS DISCH DAY >30min JUNITO MENDES RESIDENT Apr 20, 2025 16:46 PAGE ONEAL MD Apr 23, 2025 00:10
== END 2025-04-20 12:59 | disposition home or self-care (01) | DRG 552 ==
LOC: ER 15:47 → OVERFLOW 04-19 01:21 → WEST WING 04-19 21:48
PROVIDERS: ADMIT Internal Medicine Geriatric Medicine; ATTEND Internal Medicine Geriatric Medicine
DX: M48.061 Spinal stenosis, lumbar region without neurogenic claudication (principal); Z68.41 Body mass index [BMI] 40.0-44.9, adult; M51.379 Other intervertebral disc degeneration, lumbosacral region without mention of lumbar back pain or lower extremity pain; J45.909 Unspecified asthma, uncomplicated; I10 Essential (primary) hypertension; R33.9 Retention of urine, unspecified; G43.909 Migraine, unspecified, not intractable, without status migrainosus; E66.01 Morbid (severe) obesity due to excess calories; T36.8X5A Adverse effect of other systemic antibiotics, initial encounter; M51.369 Other intervertebral disc degeneration, lumbar region without mention of lumbar back pain or lower extremity pain; Z80.3 Family history of malignant neoplasm of breast; Z79.899 Other long term (current) drug therapy; Z88.3 Allergy status to other anti-infective agents; Z87.440 Personal history of urinary (tract) infections; Z98.891 History of uterine scar from previous surgery; Y92.89 Other specified places as the place of occurrence of the external cause
CPT/HCPCS: 36415; 72131; 72148; 80048; 80061; 80076; 80307; 81001; 82306; 82607; 83036; 83605; 83690; 83735; 84100; 84443; 85025; 85610; 85652; 85730; 86038; 86141; 87040; 87086; 97163; G0378; J1100; J2405

== ENCOUNTER 2025-04-26 07:24 | Emergency (ER) | payer OTHER ==
[~2025-04-26] VITALS: Ht 157.5 cm; Wt 100.0 kg
[~2025-04-26 07:24] MED LIST changes: +ATOG60TA PO; +CYCL-839 PO; -HYDR-4902 PO; +IBUP1TAB5 PO; +METO-289 PO; +SUMA50TA2 PO
[2025-04-26 07:25] VITALS: TEMP 97.9
--- NOTE | 2025-04-26 07:36 | ED.PDOC ---
Back pain HPI HPI Comments The patient is a 29-year-old female with a past medical history of hypertension, asthma, arthritis, and migraines presents again for lower back pain. Started PT Friday. Shooting pain down the left leg and pain has been persistent since. The pain is described as shooting. See discharge note below: She reported that the numbness extended from her hips to her feet, including the groin, thighs, buttocks, and saddle region. The lower back pain initially started in February 2025 and was described as burning and pressure-like in nature, worsened by movement and somewhat relieved with rest. She also reported an inability to feel urination and noted spasms in her right leg. She had been using a walker for support but denied any recent falls. On the day of admission, she experienced progressive worsening of bilateral lower limb pain and further loss of perineal sensation, prompting her visit to the emergency department. On examination, the patient was in significant distress due to lower back pain and saddle anesthesia. She was admitted for further evaluation and management by the spinal surgery team. She denied fever, chills, abdominal pain, constipation, diarrhea, recent trauma, or sick contacts. Imaging studies included a lumbar spine MRI, which revealed multilevel disc degeneration with mild bilateral subarticular zone stenosis and moderate left foraminal stenosis at the L4-L5 level. A lumbar spine CT showed no acute displaced fractures and minimal degenerative changes. Laboratory workup revealed elevated CRP. Cauda equina syndrome was ruled out, and spinal abscess remained a differential diagnosis. The patient was treated with Benadryl and steroids for symptom relief. Spinal surgery recommended conservative management with physical therapy and muscle relaxants. Pain was managed with acetaminophen, tramadol, and cyclobenzaprine 10 mg. Her history of migraines was managed with Imitrex 100 mg as needed, and she continued her home medications, including Qulipta and metoprolol succinate. Chronic leukocytosis was noted, and a peripheral smear was ordered for further evaluation. The patient was also noted to have morbid obesity with a BMI of 40.3, mildly elevated LDL, and an HbA1c of 4.9%. She was counseled on lifestyle modifications and dietary changes. Additionally, she reported an allergic reaction to ceftriaxone in the past, which was documented and cephalosporins were discontinued. She was treated with Benadryl and steroids for the allergic response. At discharge, the patient was stable. Discharge instructions were provided, and she was encouraged to follow up with her primary care provider and spinal surgery as needed. All questions were addressed, and the patient verbalized understanding of her care plan. continue cyclobenzaprine, tramadol Has apt with PCP tomorrow Chief Complaint: Back Pain Time Seen by MD: 07:35 Primary Care Provider: UMANG Reviewed Notes: Nurses Notes, Medications, Allergies Allergies: Coded Allergies: Morphine (Verified Allergy, Mild, Localized Rash, 04/19/25) Naproxen (Verified Allergy, Unknown, 12/02/24) Pineapple (Verified Allergy, Unknown, 04/19/25) Home Meds Active Scripts Methylprednisolone (Medrol Dosepak) 4 Mg Maximo, 4 MG PO UD, #21 TAB 0 Refills UAD Prov:GIANNI WALL NP 04/26/25 Methocarbamol (Methocarbamol) 500 Mg Tab, 500 MG PO Q8HP PRN for 10 Days, #30 TAB 0 Refills Prov:GIANNI WALL NP 04/26/25 Ibuprofen Micronized (Ibuprofen) 600 Mg Tab, 600 MG PO BID for 10 Days, #20 TAB 0 Refills Prov:AMOL HOLLIDAY RESIDENT 04/20/25 Meclizine HCl (Meclizine 25) 25 Mg Tab, 25 MG PO DAILY for 5 Days, #5 TAB Prov:BILL HAM MD 12/03/24 Reported Medications Sumatriptan Succinate (Imitrex) 50 Mg Tab, 1 TAB PO UD, #9 TAB 1 Refill 04/19/25 Metoprolol Succinate (Metoprolol Succinate Er) 50 Mg Tab, 1 TAB PO 04/19/25 Atogepant (Qulipta) 60 Mg Tab, 1 TAB PO DAILY 04/19/25 Discontinued Reported Medications Albuterol Sulfate (Albuterol Sulfate) 2 Mg Tab, 2 MG PO Q6HP PRN for SHORTNESS OF BREATH, MG 04/19/25 Atogepant (Qulipta) 10 Mg Tab, PO DAILY, TAB 04/19/25 Discontinued Scripts Hydrocodone-Acetaminophen (Hydrocodone Bitartrate/AC 5-325 mg) 1 Tab Tab, 1 TAB PO QID PRN for 4 Days, #16 TAB Prov:GIL ROLDAN MD 03/28/25 Information Source: Patient Mode of Arrival: Wheelchair Timing: Came on: Gradually Duration: Since onset Location of Back pain: (B) Lower back Severity: Moderate Prehospital treatment: None Onset: Spontaneous History of: Chronic Back Pain, Arthritis Associated signs and symptoms: None Past Medical History PAST MEDICAL HISTORY: Arthritis, Asthma, HTN Past Medical History (Other): Chronic back pain Surgical History: Denies all surgeries JEEP MECHANIC History: Unknown Family History Family History: Reviewed,noncontributory to illness, Unknown Social History Smoker: Non-Smoker Alcohol: Denies ETOH Use Drugs: Denies Drug Use Lives In: Home Constitutional: denies: chills, diaphoresis, fatigue, fever, malaise, sweats, weakness, others EENTM: denies: blurred vision, double vision, ear bleeding, ear discharge, ear drainage, ear pain, ear ringing, eye pain, eye redness, hearing loss, mouth pain, mouth swelling, nasal discharge, nose bleeding, nose congestion, nose pain, photophobia, tearing, throat pain, throat swelling, voice changes, others Respiratory: denies: cough, hemoptysis, orthopnea, SOB at rest, shortness of breath, SOB with excertion, stridor, wheezing, others Cardiovascular: denies: chest pain, dizzy spells, diaphoresis, Dyspnea on exertion, edema, irregular heart beat, left arm pain, lightheadedness, palpitations, PND, syncope, others Gastrointestinal: denies: abdomen distended, abdominal pain, blood streaked bowels, constipated, diarrhea, dysphagia, difficulty swallowing, hematemesis, melena, nausea, poor appetite, poor fluid intake, rectal bleeding, rectal pain, vomiting, others Genitourinary: denies: abnormal vagina bleeding, burning, dyspareunia, dysuria, flank pain, frequency, hematuria, incontinence, pain, , vagina discharge, urgency, others Neurological: denies: dizziness, fainting, headache, left sided numbness, left sided weakness, numbness, paresthesia, pre-existing deficit, right sided n umbness, right sided weakness, seizure, speech problems, tingling, tremors, weakness, others Musculoskeletal: denies: back pain, gout, joint pain, joint swelling, muscle pain, muscle stiffness, neck pain, others Integumetry: denies: bruises, change in color, change in hair/nails, dryness, laceration, lesions, lumps, rash, wounds, others Allergic/Immunocompromised: denies: Difficulty Healing, Frequent Infections, Hives, Itching, others Hematologic/Lymphatic: denies: anemia, blood clots, easy bleeding, easy bruising, swollen glands, others Endocrine: denies: excessive hunger, excessive sweating, excessive thirst, excessive urination, flushing, intolerance to cold, intolerance to heat, unexplained weight gain, unexplained weight loss, others Psychiatric: denies: anxiety, bipolar disorder, depression, hopeless, panic disorder, schizophrenia, sleepless, suicidal, others All Other Systems: Reviewed and Negative Physical Exam General Appearance: No Apparent Distress, Normal HEENT: Normal ENT Inspection, Pharynx Normal, TMs Normal Neck: Full Range of Motion, Non-Tender, Normal, Normal Inspection Respiratory: Chest Non-Tender, Lungs Clear, No Accessory Muscle Use, No Respiratory Distress, Normal Breath Sounds Cardiovascular: No Edema, No JVD, No Murmur, No Gallop, Normal Peripheral Pulses, Regular Rate/Rhythm Breast Exam: Deferred Gastrointestinal: No Organomegaly, Non Tender, No Pulsatile Mass, Normal Bowel Sounds, Soft Genitalia: Deferred Pelvic: Deferred Rectal: Deferred Extremities: No calf tenderness, Normal capillary refill, Normal inspection, Normal range of motion, Non-tender, No pedal edema Musculoskeletal : Extremity Location: Back (declined exam) Apperance: Normal Neurologic: Alert, paralegal supervisor II-XII nml as Tested, No Motor Deficits, Normal Affect, Normal Mood, No Sensory Deficits Cerebellar Function: Normal Reflexes: Normal Skin: Dry, Normal Color, Warm Lymphatic: No Adenopathy Was a procedure done? Was a procedure done?: No Back Pain Differential Dx Differential Diagnosis: Musculoskeletal Pain X-Ray, Labs, Meds, VS Vital Signs Date Time Temp Pulse Resp B/P (MAP) Pulse Ox O2 Delivery O2 Flow Rate FiO2 04/26/25 08:51 92 18 97 Room Air 04/26/25 08:51 92 18 125/93 (104) 97 04/26/25 07:25 97.9 99 19 118/92 100 97.9 Current Medications Medications (Trade) Dose Ordered Sig/Mario Route Start Time Stop Time Status Last Admin Ketorolac Tromethamine (Toradol Injection) 60 mg ONCE ONCE IM 04/26/25 09:00 04/26/25 09:08 DC 04/26/25 09:19 Methylprednisolone Sodium Succinate (Solu Medrol) 125 mg ONCE ONCE IM 04/26/25 09:00 04/26/25 09:08 DC 04/26/25 09:18 X-Ray, Labs, Meds, VS Comment On reevaluation, patient had symptomatic improvement. Patient is stable for discharge at this time. External notes reviewed. Test results and diagnostic imaging interpreted. All diagnostic findings, discharge care, education and instructions provided Follow-up with PCP in 2 to 3 days Patient verbalized understanding and agreed to treatment plan Vital signs stable, afebrile, no acute distress noted Patient ambulatory with strong steady gait Advised to return precautions for any new or worsening symptoms, return to ER immediately for re-evaluation Patient is aware that the purpose of this visit was for an acute medical emergency requiring emergent stabilization. Chronic conditions, including malignancies have not been ruled out. Patient is instructed to follow up with PCP as directed and discharge instructions for continued care and workup. If unable to arrange follow-up, patient is to return to the emergency department for reassessment. Patient (parent or legal guardian if applicable) was given verbal and written discharge instructions and acknowledges understanding. Time of 1ST Reevaluation: 08:05 Reevaluation 1ST: Unchanged Patient Education/Counseling: Diagnosis, Treatment, Prognosis Family Education/Counseling: No Family Present SEPSIS Sepsis Screen Date sepsis recognized/suspect: Apr 26, 2025 Time Sepsis recognized/suspect: 724 Recent Procedure: No On Antibiotic Therapy: No Respiratory Rate >20: No Heart Rate >90: Yes Temp<36 C (96.8 F) or >38.3 C: No SBP <90 or MAP <65 mmHG: No New Acute Mental Status Change: No Is the patient on CPAP, BIPAP,: No Vital Signs Date Time Temp Pulse Resp B/P (MAP) Pulse Ox O2 Delivery O2 Flow Rate FiO2 04/26/25 08:51 92 18 97 Room Air 04/26/25 08:51 92 18 125/93 (104) 97 04/26/25 07:25 97.9 99 19 118/92 100 97.9 Medications Medications Dose Ordered Sig/Mario Route Start Time Stop Time Status Last Admin Dose Admin Ketorolac Tromethamine 60 mg ONCE ONCE IM 04/26/25 09:00 04/26/25 09:08 DC 04/26/25 09:19 Methylprednisolone Sodium Succinate 125 mg ONCE ONCE IM 04/26/25 09:00 04/26/25 09:08 DC 04/26/25 09:18 Departure 1 Departure Time of Disposition: 08:59 Impression: Primary Impression: Foraminal stenosis of lumbar region Disposition: HOME / SELF CARE / HOMELESS Condition: Stable e-Prescriptions Methylprednisolone (Medrol Dosepak) 4 Mg Maximo 4 MG PO UD, #21 TAB 0 Refills UAD Prov: GIANNI WALL NP 04/26/25 Methocarbamol (Methocarbamol) 500 Mg Tab 500 MG PO Q8HP PRN for 10 Days, #30 TAB 0 Refills Prov: GIANNI WALL SURFACE GRINDING MACHINE HAND 04/26/25 Discharged With: Self Critical Care Note Critical Care Time?: No Stability Stability form required: No Heart Score Heart Score: Heart Score Response (Comments) Value History N/A 0 EKG N/A 0 Age N/A 0 Risk Factors N/A 0 Troponin N/A 0 Total 0 I personally scribed for GIANNI WALL NP ([email or web address]) on 04/26/25 at 07:36. Electronically submitted by Kenneth Hu ([email or web address]). GIANNI WALL NP Apr 26, 2025 07:36
[2025-04-26 08:51] VITALS: BP 125/93; PULSE 92; RESP 18; O2SAT 97
[2025-04-26] MEDS ORDERED: METH-1181 PO (09:00)
[2025-04-26] MEDS ORDERED: METH4PAK PO (09:02)
[2025-04-26] MEDS: methylPREDNISolone SOD SUCC 125 MG/2 ML VL IM ONE (09:18)
[2025-04-26] MEDS: KETOROLAC TROMETH 60MG/2ML VIAL IM ONE (09:19)
== END 2025-04-26 09:30 | disposition home or self-care (01) ==
LOC: ER 07:24
DX: M48.061 Spinal stenosis, lumbar region without neurogenic claudication (principal); I10 Essential (primary) hypertension; J45.909 Unspecified asthma, uncomplicated; M19.90 Unspecified osteoarthritis, unspecified site; E66.01 Morbid (severe) obesity due to excess calories; Z68.41 Body mass index [BMI] 40.0-44.9, adult; Z71.3 Dietary counseling and surveillance; Z88.5 Allergy status to narcotic agent; Z88.6 Allergy status to analgesic agent; Z88.8 Allergy status to other drugs, medicaments and biological substances
CPT/HCPCS: 96372; 99284; J1885; J2919

== ENCOUNTER 2025-06-10 13:00 | Inpatient (IN) | payer OTHER ==
[~2025-06-10] VITALS: Ht 160 cm; Wt 114.8 kg
[~2025-06-10 13:00] MED LIST changes: -CYCL-839 PO; +METH-1181 PO; +METH4PAK PO
[2025-06-10] MEDS ORDERED: KETOROLAC TROMETH 60MG/2ML VIAL IM ONE (14:15)
[2025-06-10] MEDS ORDERED: methylPREDNISolone SOD SUCC 125 MG/2 ML VL IM ONE (14:15)
--- NOTE | 2025-06-10 14:25 | ED.PDOC ---
Back pain HPI HPI Comments A 30 YEAR OLD FEMALE PRESENTS TO THE ED WITH COMPLAINT OF CHRONIC LOWER BACK PAIN. PATIENT STATES SHE HAS A HISTORY OF CHRONIC LOWER BACK PAIN FOR THE PAST 2 MONTHS AND QWAS ADMITTED AT THIS HOSPITAL 2 MONTH AGO WHERE AN MRI WAS DONE TO RULE OUT CAUDA EQUINA SYNDROME WHICH REVEALED DISC PROTRUSIONS AND SPINAL STENOSIS. PATIENT REPORTS HER SYMPTOMS HAVE NEVER FULLY IMPROVED AND SHE RECENTLY HAD ANOTHER MRI DONE ON06/02/2025, BUT HAS NOT RECEIVED THE RESULTS OF YET. PATIENT NOTES SHE HAS ANOTHER MRI SCHEDULED ON 06/13/2025. PATIENT STATES SHE IS CURRENTLY EXPERIENCING LOWER BACK PAIN THAT RADIATES DOWN HER LEFT LEG AND STATES HER PAIN ALSO OCCASIONALLY RADIATES TO HER GROIN REGION. PATIENT DENIES DYSURIA, HEMATURIA, SADDLE ANESTHESIA, URINARY INCONTINENCE, BOWEL INCONTINENCE, FEVER, CHILLS, SHORTNESS OF BREATH, CHEST PAIN, ABDOMINAL PAIN, NAUSEA, VOMITING, HEADACHE, OR OTHER COMPLAINTS. NO OTHER SYMPTOMS OR MODIFYING FACTORS AT THIS TIME. PATIENT IS ALERT, ORIENTED X 4, AND HAS STEADY GAIT. Chief Complaint: Back Pain Time Seen by MD: 13:24 Primary Care Provider: UMANG Reviewed Notes: Nurses Notes, Medications, Allergies Allergies: Coded Allergies: Morphine (Verified Allergy, Mild, Localized Rash, 04/19/25) Naproxen (Verified Allergy, Unknown, 12/02/24) Pineapple (Verified Allergy, Unknown, 04/19/25) Home Meds Active Scripts Methylprednisolone (Medrol Dosepak) 4 Mg Maximo, 4 MG PO UD, #21 TAB 0 Refills UAD Prov:GIANNI WALL HOUSEHOLD CHORES 04/26/25 Methocarbamol (Methocarbamol) 500 Mg Tab, 500 MG PO Q8HP PRN for 10 Days, #30 TAB 0 Refills Prov:GIANNI WALL NP 04/26/25 Ibuprofen Micronized (Ibuprofen) 600 Mg Tab, 600 MG PO BID for 10 Days, #20 TAB 0 Refills Prov:AMOL HOLLIDAY 04/20/25 Meclizine HCl (Meclizine 25) 25 Mg Tab, 25 MG PO DAILY for 5 Days, #5 TAB Prov:BILL HAM MD 12/03/24 Reported Medications Sumatriptan Succinate (Imitrex) 50 Mg Tab, 1 TAB PO UD, #9 TAB 1 Refill 04/19/25 Metoprolol Succinate (Metoprolol Succinate Er) 50 Mg Tab, 1 TAB PO 04/19/25 Atogepant (Qulipta) 60 Mg Tab, 1 TAB PO DAILY 04/19/25 Information Source: Patient Mode of Arrival: Ambulatory Timing: Months Duration: Since onset Location of Back pain: (B) Lumbar Radiates to: Anterior: (L) Buttocks, (L) Calf, (L) Thigh Radiates to: Posterior: (L) Buttocks, (L) Calf, (L) Thigh Radiates to: Medial: (L) Buttocks, (L) Calf, (L) Thigh Radiates to: Lateral: (L) Buttocks, (L) Calf, (L) Thigh Severity: Moderate Prehospital treatment: None Quality: Aching, Burning, Cramping Onset: Spontaneous History of: Chronic Back Pain Modifying Factors: Movement Associated signs and symptoms: None Past Medical History PAST MEDICAL HISTORY: Arthritis, Asthma, HTN Past Medical History (Other): DDD OF LOW BACK Surgical History: Denies all surgeries ALTERATION MANAGER History: Denies all ALTERATION MANAGER Hx, No Pertinent ALTERATION MANAGER History Family History Family History: Reviewed,noncontributory to illness Social History Smoker: Non-Smoker Alcohol: Denies ETOH Use Drugs: Denies Drug Use Lives In: Home Constitutional: denies: chills, diaphoresis, fatigue, fever, malaise, sweats, weakness, others EENTM: denies: blurred vision, double vision, ear bleeding, ear discharge, ear drainage, ear pain, ear ringing, eye pain, eye redness, hearing loss, mouth pain, mouth swelling, nasal discharge, nose bleeding, nose congestion, nose pain, photophobia, tearing, throat pain, throat swelling, voice changes, others Respiratory: denies: cough, hemoptysis, orthopnea, SOB at rest, shortness of breath, SOB with excertion, stridor, wheezing, others Cardiovascular: denies: chest pain, dizzy spells, diaphoresis, Dyspnea on exertion, edema, irregular heart beat, left arm pain, lightheadedness, palpitations, PND, syncope, others Gastrointestinal: denies: abdomen distended, abdominal pain, blood streaked bowels, constipated, diarrhea, dysphagia, difficulty swallowing, hematemesis, melena, nausea, poor appetite, poor fluid intake, rectal bleeding, rectal pain, vomiting, others Genitourinary: denies: abnormal vagina bleeding, burning, dyspareunia, dysuria, flank pain, frequency, hematuria, incontinence, pain, , vagina discharge, urgency, others Neurological: denies: dizziness, fainting, headache, left sided numbness, left sided weakness, numbness, paresthesia, pre-existing deficit, right sided numbness, right sided weakness, seizure, speech problems, tingling, tremors, weakness, others Musculoskeletal: reports: back pain (LOWER BACK PAIN THAT RADIATES DOWN LEFT LEG), muscle pain; denies: gout, joint pain, joint swelling, muscle stiffness, neck pain, others Integumetry: denies: bruises, change in color, change in hair/nails, dryness, laceration, lesions, lumps, rash, wounds, others Allergic/Immunocompromised: denies: Difficulty Healing, Frequent Infections, Hives, Itching, others Hematologic/Lymphatic: denies: anemia, blood clots, easy bleeding, easy bruising, swollen glands, others Endocrine: denies: excessive hunger, excessive sweating, excessive thirst, excessive urination, flushing, intolerance to cold, intolerance to heat, unexplained weight gain, unexplained weight loss, others Psychiatric: denies: anxiety, bipolar disorder, depression, hopeless, panic disorder, schizophrenia, sleepless, suicidal, others All Other Systems: Reviewed and Negative Physical Exam General Appearance: Moderate Distress, Obese HEENT: Normal ENT Inspection, PERRL/EOMI, Pharynx Normal, TMs Normal Neck: Full Range of Motion, Non-Tender, Normal, Normal Inspection Respiratory: Chest Non-Tender, Lungs Clear, No Accessory Muscle Use, No Respiratory Distress, Normal Breath Sounds Cardiovascular: No Edema, No JVD, No Murmur, No Gallop, Normal Peripheral Pulses, Regular Rate/Rhythm Breast Exam: Deferred Gastrointestinal: No Organomegaly, Non Tender, No Pulsatile Mass, Normal Bowel Sounds, Soft Genitalia: Deferred Pelvic: Deferred Rectal: Deferred Extremities: No calf tenderness, Normal capillary refill, Normal inspection, Normal range of motion, Non-tender, No pedal edema Musculoskeletal : Location: Bilateral Extremity Location: Back, Other (NO REDNESS, SWELLING AND DVT SIGNS OF LEFT LOWER LEG. ) Apperance: Tenderness: Moderate (MUSCLE TIGHTNESS, NO REDNESS AND SWELLING ON LOWER BACK. 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 Was a procedure done?: No Back Pain Differential Dx Differential Diagnosis: DJD, Musculoskeletal Pain, Strain Other Differential Diagnosis DDD, LUMBAR RADICULOPATHY, CHRONIC PAIN EXACERBATION, CHRONIC LOWER BACK PAIN X-Ray, Labs, Meds, VS Vital Signs Date Time Temp Pulse Resp B/P (MAP) Pulse Ox O2 Delivery O2 Flow Rate FiO2 06/10/25 16:02 98.1 77 18 122/71 (88) 100 98.1 06/10/25 16:02 77 18 100 Room Air 06/10/25 14:30 77 16 122/71 06/10/25 13:02 98.6 112 20 126/90 100 98.6 Lab Test 06/10/25 15:41 06/10/25 14:36 Range/Units Urine Color Light-yellow Yellow Urine Clarity Clear Clear Urine pH 7.0 5.0-9.0 Urine Specific [place] 1.017 1.001-1.035 Urine Protein Negative Negative Urine Ketones Negative Negative Urine Blood Negative Negative /uL Urine Nitrite Negative Negative Urine Bilirubin Negative Negative Urine Urobilinogen Normal Negative mg/dL Urine Leukocyte Esterase Negative Negative /uL Urine RBC 4 0 - 4 /hpf Urine Microscopic WBC 1 0-5 /HPF Urine Squamous Epithelial Cells Few <5 /hpf Urine Bacteria None seen None Seen /hpf Urine Glucose Normal Normal mg/dL Urine Test Negative Negative White Blood Count 9.9 4.4-10.8 10^3/uL Red Blood Count 5.03 4.0-5.20 10^6/uL Hemoglobin 15.2 12.2-16.2 g/dL Hematocrit 45.0 36.0-46.0 % Mean Corpuscular Volume 89.6 80.0-100.0 fL Mean Corpuscular Hemoglobin 30.3 28.0-32.0 pg Mean Corpuscular Hemoglobin Concent 33.8 32.0-36.0 g/dL Red Cell Distribution Width 13.4 11.8-14.3 % Platelet Count 306 140-450 10^3/uL Mean Platelet Volume 7.7 6.9-10.8 fL Neutrophils (%) (Auto) 67.0 37.0-80.0 % Lymphocytes (%) (Auto) 22.7 10.0-50.0 % Monocytes (%) (Auto) 8.6 0.0-12.0 % Eosinophils (%) (Auto) 1.2 0.0-7.0 % Basophils (%) (Auto) 0.5 0.0-2.0 % Neutrophils # (Auto) 6.7 1.6-8.6 10 ^3/uL Lymphocytes # (Auto) 2.2 0.4-5.4 10 ^3/uL Monocytes # (Auto) 0.9 0-1.3 10 ^3/uL Eosinophils # (Auto) 0.1 0-0.8 10 ^3/uL Basophils # (Auto) 0 0-0.2 10 ^3/uL Nucleated Red Blood Cells 0.0 % Sodium Level 139 136-145 mmol/L Potassium Level 4.3 3.5-5.1 mmol/L Chloride Level 103 98-107 mmol/L Carbon Dioxide Level 27 20-31 mmol/L Anion Gap 9 5-15 Blood Urea Nitrogen 10 9-23 mg/dL Creatinine 0.64 0.550-1.02 mg/dL Glomerular Filtration Rate Calc 120 >90 mL/min BUN/Creatinine Ratio 15.6 10.0-20.0 Serum Glucose 101 74-106 mg/dL Calcium Level 9.6 8.7-10.4 mg/dL Current Medications Medications (Trade) Dose Ordered Sig/Mario Route Start Time Stop Time Status Last Admin Methylprednisolone Sodium Succinate (Solu Medrol) 125 mg ONCE ONCE IV 06/10/25 14:30 06/10/25 14:31 DC 06/10/25 14:30 Sodium Chloride 1,000 ml @ 1,000 mls/hr Q1H ONCE IV 06/10/25 14:30 06/10/25 15:29 DC 06/10/25 14:30 Hydromorphone HCl (Dilaudid Injection) 1 mg ONCE ONCE IV 06/10/25 14:30 06/10/25 14:31 DC 06/10/25 14:30 Ondansetron HCl (Zofran) 4 mg ONCE ONCE IV 06/10/25 14:30 06/10/25 14:31 DC 06/10/25 14:30 X-Ray, Labs, Meds, VS Comment EXTERNAL MEDICAL RECORDS REVIEWED: PATIENT'S PREVIOUS CHART AN MRI AND CT STUDIES FROM 04/19/2025 WERE REVIEWED BY ME WHICH REVEALED SPINAL STENOSIS AND DISC PROTRUSIONS. INDEPENDENT HISTORIANS: [NONE] SOCIAL DETERMINANTS OF HEALTH: [NONE] LABS ORDERED: CBC, BMP, UA, URINE REVIEWED AND INTERPRETED RESULTS: NORMAL IMAGING ORDERED: NONE TREATMENTS ORDERED: DILAUDID 1MG IV, SOLU-MEDROL 125 MG IV AND 0.9 NS 1L PROCEDURES PERFORMED: NONE CRITICAL CARE TIME: NONE I HAVE DISCUSSED THE PATIENT WITH THE ATTENDING PHYSICIAN [PHYSICIAN'S NAME] AND HE AGREES WITH THE PATIENT'S PLAN OF CARE. UPON MY PHYSICAL EXAMINATION, THE PATIENT HAD TENDERNESS AND PERSISTENT PAIN IN HER LUMBAR SPINE THAT RADIATES DOWN TO HER LEFT LOWER LEGS WITH A NUMBNESS AND TINGLING SENSATION. I HAVE REVIEWED THE PATIENT'S PREVIOUS CHART AND IMAGING FROM WHICH REVEALED SPINAL STENOSIS AND DISC PROTRUSIONS. DUE TO THE PATIENT'S PERSISTENT INTRACTABLE PAIN, I HAVE DETERMINED THE PATIENT NEEDS TO BE ADMITTED FOR FURTHER TREATMENT AND EVALUATION BY A NEUROSURGEON SPECIALIST. ON- CALL HOSPITALIST WILL BE CONTACTED FOR ADMISSION OF THIS PATIENT. Time of 1ST Reevaluation: 15:43 Reevaluation 1ST: Unchanged Patient Education/Counseling: Diagnosis, Treatment Family Education/Counseling: Diagnosis, Treatment SEPSIS Sepsis Screen Date sepsis recognized/suspect: Jun 10, 2025 Time Sepsis recognized/suspect: 1307 Recent Procedure: No On Antibiotic Therapy: No Respiratory Rate >20: No Heart Rate >90: Yes Temp<36 C (96.8 F) or >38.3 C: No SBP <90 or MAP <65 mmHG: No New Acute Mental Status Change: No Is the patient on CPAP, BIPAP,: No Physician Orders Heplock Iv (06/10/25 ) * Neurology Consult (06/10/25 14:17) Vital Signs Date Time Temp Pulse Resp B/P (MAP) Pulse Ox O2 Delivery O2 Flow Rate FiO2 06/10/25 16:02 98.1 77 18 122/71 (88) 100 98.1 06/10/25 16:02 77 18 100 Room Air 06/10/25 14:30 77 16 122/71 06/10/25 13:02 98.6 112 20 126/90 100 98.6 Laboratory Tests Test 06/10/25 14:36 White Blood Count 9.9 10^3/uL (4.4-10.8) Medications Medications Dose Ordered Sig/Mario Route Start Time Stop Time Status Last Admin Dose Admin Hydromorphone HCl 1 mg ONCE ONCE IV 06/10/25 14:30 06/10/25 14:31 DC 06/10/25 14:30 Methylprednisolone Sodium Succinate 125 mg ONCE ONCE IV 06/10/25 14:30 06/10/25 14:31 DC 06/10/25 14:30 Ondansetron HCl 4 mg ONCE ONCE IV 06/10/25 14:30 06/10/25 14:31 DC 06/10/25 14:30 Sodium Chloride 1,000 ml @ 1,000 mls/hr Q1H ONCE IV 06/10/25 14:30 06/10/25 15:29 DC 06/10/25 14:30 Departure 1 Departure Time of Disposition: 15:43 Impression: Primary Impression: Intractable low back pain Additional Impressions: DDD (degenerative disc disease), lumbar Qualified Codes: M51.362 - Other intervertebral disc degeneration, lumbar region with discogenic back pain and lower extremity pain Lumbar radiculopathy Disposition: ADMITTED INPATIENT Condition: Serious Critical Care Note Critical Care Time?: No Stability Stability form required: Yes Unstable for transfer: Requires medication, ED Physician Assesment, Possible rapid decline I personally scribed for CYNTHIA REDMOND ([email or web address]) on 06/10/25 at 14:25. Electronically submitted by Mike Sevilla ([email or web address]). CYNTHIA REDMOND Jun 10, 2025 14:25
[2025-06-10] MEDS: methylPREDNISolone SOD SUCC 125 MG/2 ML VL IV ONE (14:30)
[2025-06-10] MEDS ORDERED: KETOROLAC TROMETH 30 MG/ML 1ML VIAL IV ONE (14:30)
[2025-06-10] MEDS: SODIUM CHLORIDE 0.9% 1,000 ML IV ONE (14:30)
[2025-06-10] MEDS: HYDROmorphone HCL 2 MG/ML VL/or syr IV ONE (14:30)
[2025-06-10] MEDS: ONDANSETRON HCL 4 MG/2 ML VIAL IV ONE (14:30)
[2025-06-10 15:00] LABS: Chloride 103 mmol/L (98-107); Potassium 4.3 mmol/L (3.5-5.1); Sodium 139 mmol/L (136-145)
[2025-06-10 15:01] LABS: Hematocrit 45.0 % (36.0-46.0); Hemoglobin 15.2 g/dL (12.2-16.2); Mean Corpuscular Hemoglobin 30.3 pg (28.0-32.0); Mean Corpuscular Volume 89.6 fL (80.0-100.0); Nucleated Red Blood Cells % 0.0 %
[2025-06-10 15:02] LABS: Calcium 9.6 mg/dL (8.7-10.4)
[2025-06-10 15:06] LABS: BUN/Creatinine Ratio 15.6 (10.0-20.0); Blood Urea Nitrogen 10 mg/dL (9-23); Glucose 101 mg/dL (74-106)
[2025-06-10 15:57] LABS: Anion Gap 9 (5-15); Carbon Dioxide 27 mmol/L (20-31)
[2025-06-10 16:49] LABS: Urine Protein, UAD Negative (Negative)
[2025-06-10 17:53] VITALS: PULSE 87; RESP 18; O2SAT 98
--- NOTE | 2025-06-10 22:07 | DVHHPRES ---
History of Present Illness Resident Creating Document: JUNITO MENDES History of Present Illness Patient is a 30-year-old female with past medical history of osteoarthritis, migraine, asthma, HTN and degenerative disc disease of low back, presented to [facility] ED with complaint of lower back pain for the past 3 months. The patient is experiencing lower back pain that radiates down her legs and her groin region with numbness. She was admitted to this hospital two months ago, at which time an MRI was performed to rule out cauda equina syndrome. That MRI revealed disc protrusions and spinal stenosis. The patient states her symptoms have never fully improved since that admission. She recently had another MRI performed on June 02, 2025, which showed mild disc bulges without significant nerve compression. Her symptoms have worsened despite physical therapy, and surgery was not indicated based on imaging at that time. She also has another MRI of brain, neck and upper back scheduled for June 13, 2025. She denies dysuria, hematuria, saddle anesthesia, urinary incontinence, bowel incontinence, fever, chills, shortness of breath, chest pain, abdominal pain, nausea, vomiting, headache, or other complaints. No other symptoms or modifying factors are reported at this time. The patient is alert, oriented to person, pl janusz, time, and situation, and demonstrates a steady gait. On evaluation in the ED, patient is afebrile, tachycardic, other vitals are stable. Initial lab results are within normal limits. Lumbar spine CT shows minimal disc protrusion effaces the thecal sac at L4-L5 level and minimal disc protrusion at L5-S1 level. The patient was started on pain management and IV fluids. Patient is admitted for further evaluation and management. Past Medical History Osteoarthritis, migraine, asthma, HTN, degenerative disc disease of low back Past Surgical History: None Family History: None Smoke: No ALCOHOL: none Drugs: None Review of Systems Review of Systems Eyes: No Pain, No Vision change, No Conjunctivae inflammation, No Eyelid infl ammation, No Other, No Redness ENT: No Ear pain, No Ear discharge, No Nose pain, No Nose discharge, No Nose congestion, No Mouth pain, No Mouth swelling, No Throat pain, No Throat swelling, No Other Cardiovascular: No Chest Pain, No Palpitations, No Orthopnea, No Paroxysmal No Dyspnea, No Edema, No Lt Headedness, No Other Respiratory: No Cough, No Dry, No Shortness of breath, No SOB with exertion, No Wheezing, No Hemoptysis, No Pleuritic Pain, No Sputum, No Other Gastrointestinal: No Nausea, No Vomiting, No Abdominal Pain, No Diarrhea, No Constipation, No Melena, No Hematochezia, No Other Genitourinary: No Dysuria, No Frequency, No Incontinence, No Hematuria, No Retention, No Other Musculoskeletal: No other, No neck pain, No shoulder pain, No arm pain, back pain, No hand pain, leg pain, No foot pain Skin: No Rash, No Lesions, No Jaundice, No Bruising, No Other Allergies: Coded Allergies: Morphine (Verified Allergy, Mild, Localized Rash, 04/19/25) Naproxen (Verified Allergy, Unknown, 12/02/24) Pineapple (Verified Allergy, Unknown, 04/19/25) Exam Vital Signs Vital Signs Date Time Temp Pulse Resp B/P (MAP) Pulse Ox O2 Delivery O2 Flow Rate FiO2 06/10/25 21:04 98.4 93 20 118/83 (95) 97 98.4 06/10/25 17:53 Room Air* 0 21 Exam General Appearance: Cooperative. Well developed. Well nourished. NAD Head Exam: Normal inspection Neck Exam: Normal inspection. Non-tender. Normal alignment Pulmonary/Respiratory: Chest non-tender. Clear bilateral breath sounds, no crackles, no wheezing. Cardiovascular/Chest: Regular rate and rhythm. No murmurs. No JVD. Peripheral Pulses: 2+ Radial (R). 2+ Radial (L). 2+ Pedal (R). 2+ Pedal (L) Abdominal Exam: Normal bowel sounds. Soft. normal abdomen, no visible veins, N ontender. No hepatospenomegaly. No masses Ankle Exam: Negative ankle edema Lower extremities: Negative lower extremity edema Neurological: Strength is 2/5 in bilateral lower extremities. Sukhdev sign noted, indicating possible upper motor neuron involvement. Sensation intact. Deep tendon reflexes are brisk. No saddle anesthesia. A&O x4. Coherent. Musculoskeletal: Tenderness to palpation over the lumbar spine. No visible deformity or swelling. Range of motion is limited due to pain. Thoughts/Psych: Normal thought pattern. Appropriate mood and affect. Good judgement and insight Skin Exam: Normal inspection. Normal color. Warm. Dry Labs/Xrays Labs Test 06/10/25 21:47 06/10/25 15:41 06/10/25 14:36 Range/Units POC Glucose 279 H 70-106 mg/dl Urine Color Light-yellow Yellow Urine Clarity Clear Clear Urine pH 7.0 5.0-9.0 Urine Specific [place] 1.017 1.001-1.035 Urine Protein Negative Negative Urine Ketones Negative Negative Urine Blood Negative Negative /uL Urine Nitrite Negative Negative Urine Bilirubin Negative Negative Urine Urobilinogen Normal Negative mg/dL Urine Leukocyte Esterase Negative Negative /uL Urine RBC 4 0 - 4 /hpf Urine Microscopic WBC 1 0-5 /HPF Urine Squamous Epithelial Cells Few <5 /hpf Urine Bacteria None seen None Seen /hpf Urine Glucose Normal Normal mg/dL Urine Test Negative Negative White Blood Count 9.9 4.4-10.8 10^3/uL Red Blood Count 5.03 4.0-5.20 10^6/uL Hemoglobin 15.2 12.2-16.2 g/dL Hematocrit 45.0 36.0-46.0 % Mean Corpuscular Volume 89.6 80.0-100.0 fL Mean Corpuscular Hemoglobin 30.3 28.0-32.0 pg Mean Corpuscular Hemoglobin Concent 33.8 32.0-36.0 g/dL Red Cell Distribution Width 13.4 11.8-14.3 % Platelet Count 306 140-450 10^3/uL Mean Platelet Volume 7.7 6.9-10.8 fL Neutrophils (%) (Auto) 67.0 37.0-80.0 % Lymphocytes (%) (Auto) 22.7 10.0-50.0 % Monocytes (%) (Auto) 8.6 0.0-12.0 % Eosinophils (%) (Auto) 1.2 0.0-7.0 % Basophils (%) (Auto) 0.5 0.0-2.0 % Neutrophils # (Auto) 6.7 1.6-8.6 10 ^3/uL Lymphocytes # (Auto) 2.2 0.4-5.4 10 ^3/uL Monocytes # (Auto) 0.9 0-1.3 10 ^3/uL Eosinophils # (Auto) 0.1 0-0.8 10 ^3/uL Basophils # (Auto) 0 0-0.2 10 ^3/uL Nucleated Red Blood Cells 0.0 % Sodium Level 139 136-145 mmol/L Potassium Level 4.3 3.5-5.1 mmol/L Chloride Level 103 98-107 mmol/L Carbon Dioxide Level 27 20-31 mmol/L Anion Gap 9 5-15 Blood Urea Nitrogen 10 9-23 mg/dL Creatinine 0.64 0.550-1.02 mg/dL Glomerular Filtration Rate Calc 120 >90 mL/min BUN/Creatinine Ratio 15.6 10.0-20.0 Serum Glucose 101 74-106 mg/dL Calcium Level 9.6 8.7-10.4 mg/dL SEPSIS Sepsis Screen Date sepsis recognized/suspect: Jun 10, 2025 Time Sepsis recognized/suspect: 1752 Recent Procedure: No On Antibiotic Therapy: No Respiratory Rate >20: No Heart Rate >90: No Temp<36 C (96.8 F) or >38.3 C: No SBP <90 or MAP <65 mmHG: No New Acute Mental Status Change: No Is the patient on CPAP, BIPAP,: No Physician Orders Heplock Iv (06/10/25 ) * Neurology Consult (06/10/25 14:17) Vital Signs Date Time Temp Pulse Resp B/P (MAP) Pulse Ox O2 Delivery O2 Flow Rate FiO2 06/10/25 21:04 98.4 93 20 118/83 (95) 97 98.4 06/10/25 17:53 97.9 87 18 135/76 (95) 97 97.9 06/10/25 17:53 87 18 98 Room Air* 0 21 06/10/25 17:52 87 18 135/76 06/10/25 16:02 98.1 77 18 122/71 (88) 100 98.1 06/10/25 16:02 77 18 100 Room Air 06/10/25 14:30 77 16 122/71 Laboratory Tests Test 06/10/25 14:36 White Blood Count 9.9 10^3/uL (4.4-10.8) Medications Medications Dose Ordered Sig/Mario Route Start Time Stop Time Status Last Admin Dose Admin Hydromorphone HCl 1 mg ONCE ONCE IV 06/10/25 14:30 06/10/25 14:31 DC 06/10/25 14:30 1 MG Methylprednisolone Sodium Succinate 125 mg ONCE ONCE IV 06/10/25 14:30 06/10/25 14:31 DC 06/10/25 14:30 125 MG Ondansetron HCl 4 mg ONCE ONCE IV 06/10/25 14:30 06/10/25 14:31 DC 06/10/25 14:30 4 MG Sodium Chloride 1,000 ml @ 1,000 mls/hr Q1H ONCE IV 06/10/25 14:30 06/10/25 15:29 DC 06/10/25 14:30 1,000 MLS/HR Assessment/Plan Assessment/Plan Lumbar radiculopathy Lumbar spinal stenosis Lumbar degenerative disc disease Intractable lower back pain due to above Lumbar spine CT: No acute displaced fracture. Minimal disc protrusion effaces the thecal sac at L4-L5 level. Minimal disc protrusion at L5-S1 level. No significant spinal canal or neural foraminal stenosis. Lumbar MRI (06/02/25): Mild disc bulges without significant nerve compression. MRI of brain, neck and upper back scheduled for June 13, 2025. Lumbar spine MRI (04/19/25): Multilevel disc degeneration. Mild bilateral garrett barticular zone stenosis at L4-L5 level. Moderate left foraminal stenosis at L4- L5 level. Cervical spine CT: No evidence of acute cervical spine fracture or traumatic malalignment. Spine surgeon consult pain management with Tylenol, Laura and Dilaudid IV NS 150 MLS/HR Migraine continue home medications Hypertension monitor BP Obesity, BMI 40.4 kg/m2 I have counseled the patient on healthy lifestyle modifications Diet: Cardiac Goals of care: Full code, discussed for >30 minutes on 06/11/25 Plan discussed with patient Plan discussed with Dr. Rajput Plan discussed with: Patient Date of Service: Jun 10, 2025 Billing Provider: CLIVE RAJPUT MD Common Visit Codes: [id number] INP/OBS CARE (HIGH) Secondary Visit Codes: [id number] CARE PLAN 30 MINUTES JUNITO MENDES RESIDENT Jun 10, 2025 22:07 SANYA BENOIT RESIDENT Jun 11, 2025 05:25
[2025-06-10] MEDS ORDERED: ONDANSETRON HCL 4 MG/2 ML VIAL IV PRN (22:15)
[2025-06-10] MEDS ORDERED: SODIUM CHLORIDE 0.9% 1,000 ML IV ONE (22:15)
[2025-06-10 22:59] LABS: Alanine Aminotransferase 19 U/L (7-40); Albumin 4.7 g/dL (3.2-4.8); Total Protein 7.9 g/dL (5.7-8.2)
[2025-06-10 23:01] LABS: Alkaline Phosphatase 123 U/L (46-116); Bilirubin, Direct < 0.1 mg/dL (<0.3); Bilirubin, Total 0.3 mg/dL (0.2-1.0)
--- NOTE | 2025-06-10 23:17 | DVH ---
EXAM: CT CERVICAL WITHOUT CONTRAST INDICATION: neck pain EXAM DATE: 06/10/2025 10:41 PM COMPARISON: None TECHNIQUE: Multiple axial CT images of the cervical spine were obtained using bone algorithm. Axial and coronal reformatting was done. Bone and soft tissue windows were reviewed. Radiation Dose Information: CT Dose: CTDI volume is 23 mGy. Dose-length product is 596 mGy*cm FINDINGS: The cervical alignment is intact. No acute cervical spine fracture is identified. The vertebral body heights are intact. No suspicious osseous lesions are identified. No significant degenerative changes are identified. There is no prevertebral soft tissue swelling. IMPRESSION: 1. No evidence of acute cervical spine fracture or traumatic malalignment. All CT scans at this medical facility are performed using dose modulation techniques as appropriate to a performed exam including the following: Automated exposure control was utilized; adjustment of the MA and/or KV according to patient size; and use of iterative reconstruction technique.
--- NOTE | 2025-06-10 23:23 | DVH ---
EXAM: CT LS SPINE WO CONTRAST INDICATION: back pain TECHNIQUE: Axial images of the lumbar spine have been obtained along with coronal and sagittal reformatted images. CT scans at this facility use dose modulation, iterative reconstruction, and/or weight based dosing when appropriate to reduce radiation dose to as low as reasonably achievable. COMPARISON: CT LS SPINE WO CONTRAST on DOS: 04/18/25, CT LS SPINE WO CONTRAST on DOS: 03/28/25 Dose: CTDIvol: 35.6 mGy, DLP: 1279.7 mGy.cm FINDINGS: There is no acute displaced fracture. The alignment is maintained. The paraspinal soft tissues are unremarkable. LEVEL BY LEVEL DISCUSSION BELOW: T12-L1: Unremarkable. L1-L2: Unremarkable. L2-L3: Unremarkable. L3-L4: Unremarkable. L4-L5: Minimal disc protrusion effaces the thecal sac. No significant spinal canal or neural foraminal stenosis. L5-S1: Minimal disc protrusion without significant spinal canal or neural foraminal stenosis. IMPRESSION: 1. No acute displaced fracture.
[2025-06-11] VITALS (8 sets, daily range): BP systolic 115–145; BP diastolic 68–97; PULSE 72–118; RESP 16–20; TEMP 97.5–98.4; O2SAT 95–100
[2025-06-11] MEDS: HYDROcodone-ACET 5/325MG TAB PO PRN (02:35)
[2025-06-11] MEDS ORDERED: AMIT-118 PO (06:34)
[2025-06-11] MEDS ORDERED: SUMA100T15 PO (06:34)
[2025-06-11] MEDS ORDERED: ALBU2TAB11 PO (06:34)
[2025-06-11] MEDS: SODIUM CHLOR 0.9% PF (SALINE LOCK) 10ML VIAL/SYR IV SCH (07:01)
[2025-06-11 10:07] LABS: Hematocrit 42.8 % (36.0-46.0); Hemoglobin 14.3 g/dL (12.2-16.2); Mean Corpuscular Hemoglobin 30.0 pg (28.0-32.0); Mean Corpuscular Volume 90.0 fL (80.0-100.0); Nucleated Red Blood Cells % 0.1 %
[2025-06-11 10:19] LABS: Alanine Aminotransferase 16 U/L (7-40); Albumin 4.2 g/dL (3.2-4.8); Alkaline Phosphatase 108 U/L (46-116); Anion Gap 9 (5-15); BUN/Creatinine Ratio 10.0 (10.0-20.0); Calcium 9.2 mg/dL (8.7-10.4); Carbon Dioxide 25 mmol/L (20-31); Chloride 106 mmol/L (98-107); Potassium 3.9 mmol/L (3.5-5.1); Sodium 140 mmol/L (136-145); Total Protein 7.1 g/dL (5.7-8.2)
[2025-06-11 10:20] LABS: Bilirubin, Total 0.4 mg/dL (0.2-1.0); Blood Urea Nitrogen 6 mg/dL (9-23); Glucose 111 mg/dL (74-106)
[2025-06-11] MEDS: HYDROMORPHONE HCL 1 MG/ML INJ IV PRN (11:39)
--- NOTE | 2025-06-11 13:40 | DVHPN2 ---
Subjective still feeling some lower leg pain and also left hypereflexia Reviewed: H&P Changes from previous H/P or p: No Changes Objective Vitals Vital Signs Date Time Temp Pulse Resp B/P (MAP) Pulse Ox O2 Delivery O2 Flow Rate FiO2 06/11/25 12:34 98.4 118 20 145/97 (113) 95 98.4 06/11/25 08:00 Room Air* 0 21 Intake/Output Intake and Output 06/11/25 07:00 Intake Total 1000 ml Balance 1000 ml Intake Oral 0 ml IV Total 1000 ml General Appearance: Alert, Oriented X3 Lungs: Clear to auscultation Cardiovascular: Regular rate, Normal S1, Normal S2 Musculoskeletal: Other (left leg knee hypereflexia, stiff) Medications Current Medications Medications Dose Ordered Sig/Mario Route Start Time Stop Time Status Last Admin Dose Admin Sodium Chloride 10 ml Q8HR IV 06/11/25 06:00 06/11/25 07:01 10 ML Acetaminophen/ Hydrocodone Bitart 1 tab Q4HP PRN PO 06/10/25 22:15 06/11/25 09:56 1 TAB Acetaminophen 650 mg Q6HP PRN PO 06/10/25 22:15 Ondansetron HCl 4 mg Q4HPRN PRN IV 06/10/25 22:15 Hydromorphone HCl 0.5 mg Q4HPRN PRN IV 06/11/25 11:30 06/11/25 11:39 0.5 MG Laboratory Results Laboratory Tests 06/11/25 09:16 Chemistry Test 06/10/25 14:36 06/11/25 09:16 Albumin 4.7 g/dL (3.2-4.8) 4.2 g/dL (3.2-4.8) Calcium Level 9.6 mg/dL (8.7-10.4) 9.2 mg/dL (8.7-10.4) Total Protein 7.9 g/dL (5.7-8.2) 7.1 g/dL (5.7-8.2) LFT Test 06/10/25 14:36 06/11/25 09:16 Alanine Aminotransferase (ALT) 19 U/L (7-40) 16 U/L (7-40) Alkaline Phosphatase 123 U/L (46-116) H 108 U/L (46-116) Aspartate Amino Transferase (AST) 23 U/L (13-40) 18 U/L (13-40) Direct Bilirubin < 0.1 mg/dL (<0.3) Total Bilirubin 0.3 mg/dL (0.2-1.0) 0.4 mg/dL (0.2-1.0) HgA1c, TSH Test 06/10/25 14:36 Hemoglobin A1c 5.0 % A1C (<5.7) Urinalysis Test 06/10/25 15:41 Urine Color Light-yellow (Yellow) Urine Clarity Clear (Clear) Urine pH 7.0 (5.0-9.0) Urine Specific [place] 1.017 (1.001-1.035) Urine Protein Negative (Negative) Urine Ketones Negative (Negative) Urine Blood Negative /uL (Negative) Urine Nitrite Negative (Negative) Urine Bilirubin Negative (Negative) Urine Urobilinogen Normal mg/dL (Negative) Urine Leukocyte Esterase Negative /uL (Negative) Urine RBC 4 /hpf (0 - 4) Urine Microscopic WBC 1 /HPF (0-5) Urine Squamous Epithelial Cells Few /hpf (<5) Urine Bacteria None seen /hpf (None Seen) Urine Glucose Normal mg/dL (Normal) Urine Test Negative (Negative) Assessment/Plan Assessment/Plan Lumbar radiculopathy Lumbar spinal stenosis Lumbar degenerative disc disease Intractable lower back pain due to above Lumbar spine CT: No acute displaced fracture. Minimal disc protrusion effaces the thecal sac at L4-L5 level. Minimal disc protrusion at L5-S1 level. No significant spinal canal or neural foraminal stenosis. Lumbar MRI (06/02/25): Mild disc bulges without significant nerve compression. MRI of brain, neck and upper back scheduled for June 13, 2025. Lumbar spine MRI (04/19/25): Multilevel disc degeneration. Mild bilateral subarticular zone stenosis at L4-L5 level. Moderate left foraminal stenosis at L4-L5 level. Cervical spine CT: No evidence of acute cervical spine fracture or traumatic malalignment. Spine surgeon consult and neurology repeat MRI brain, C, thoracic and lumber spine pain management with Tylenol, [place] and Dilaudid IV NS 150 MLS/HR Migraine continue home medications Hypertension monitor BP Obesity, BMI 40.4 kg/m2 I have counseled the patient on healthy lifestyle modifications Plan discussed with: Patient My Orders Orders - MARTHA FLORES MD Procedure Category Date Status Time Hydromorphone Hcl Inj PHA 06/11/25 In Process (Dilaudid Injectio 11:30 Date of Service: Jun 11, 2025 Billing Provider: MARTHA FLORES MD Common Visit Codes: [id number] INP/OBS CARE(HIGH) MARTHA FLORES MD Jun 11, 2025 13:40
[2025-06-12] VITALS (9 sets, daily range): BP systolic 118–139; BP diastolic 77–96; PULSE 79–107; RESP 16–20; TEMP 97.7–98.6; O2SAT 97–100
--- NOTE | 2025-06-12 08:19 | DVH ---
MRI CERVICAL WO CONTRAST INDICATION: SPINAL STENOSIS EXAM DATE: 06/12/2025 07:27 AM COMPARISON: CT CERVICAL WITHOUT CONTRAST on DOS: 06/10/25 PROCEDURE: Using a 1.5 Destini scanner, multisequence multiplanar imaging of The cervical spine was obtained. FINDINGS: Alignment at the craniocervical junction is maintained. The cervical spine shows anatomic alignment with preservation of vertebral body heights. The marrow signal is homogeneous. The intervertebral discs appear normal in height and signal. The cervical cord is normal in signal and caliber. The paravertebral soft tissues are normal in appearance. On axial images: the posterior disc margin, thecal sac, neural foramina, and facet joints appear unremarkable. IMPRESSION: Unremarkable MRI findings of the cervical spine.
--- NOTE | 2025-06-12 09:09 | DVH ---
PROCEDURE: MRI LUMBAR SPINE WO W CONTRST Indication: SPINAL STENOSIS COMPARISON: None TECHNIQUE: Multiplanar multisequence images of the the lumbar spine are obtained. FINDINGS: For the purpose of this examination, there are 5 lumbar vertebral body types counting from the lumbosacral junction. Lumbar vertebral body heights maintained. Alignment maintained. Disc spaces preserved. No abnormal marrow edema. Conus terminates at the L1 level. L1-2: No spinal canal, neural foraminal stenosis. L2-3: No spinal canal, neural foraminal stenosis. L3-4: Tiny disc protrusion. No spinal canal, neural foraminal stenosis. L4-5: Tiny disc protrusion. No spinal canal, neural foraminal stenosis. L5-S1: Tiny disc protrusion. No spinal canal, neural foraminal stenosis. IMPRESSION: No significant lumbar spinal canal, neural foraminal stenosis. No significant lumbar degenerative disc disease.
--- NOTE | 2025-06-12 13:23 | DVHPN2 ---
Subjective Having some numbness Discussed with her in length on her findings on MRI, she is anxious Reviewed: H&P Changes from previous H/P or p: No Changes Objective Vitals Vital Signs Date Time Temp Pulse Resp B/P (MAP) Pulse Ox O2 Delivery O2 Flow Rate FiO2 06/12/25 12:44 98.1 81 20 138/96 (110) 98 98.1 06/12/25 08:00 Room Air* 0 21 Intake/Output Intake and Output 06/12/25 07:00 Intake Total 1700 ml Balance 1700 ml Intake Oral 1700 ml # Voids 6 General Appearance: Alert, Oriented X3 Lungs: Clear to auscultation Cardiovascular: Regular rate, Normal S1, Normal S2 Musculoskeletal: Other (left leg knee hypereflexia, stiff) Medications Current Medications Medications Dose Ordered Sig/Mario Route Start Time Stop Time Status Last Admin Dose Admin Sodium Chloride 10 ml Q8HR IV 06/11/25 06:00 06/12/25 05:26 10 ML Acetaminophen/ Hydrocodone Bitart 1 tab Q4HP PRN PO 06/10/25 22:15 06/12/25 13:04 1 TAB Acetaminophen 650 mg Q6HP PRN PO 06/10/25 22:15 Ondansetron HCl 4 mg Q4HPRN PRN IV 06/10/25 22:15 Hydromorphone HCl 0.5 mg Q4HPRN PRN IV 06/11/25 11:30 06/12/25 10:14 0.5 MG Laboratory Results Laboratory Tests 06/11/25 09:16 Urinalysis Test 06/10/25 15:41 Urine Color Light-yellow (Yellow) Urine Clarity Clear (Clear) Urine pH 7.0 (5.0-9.0) Urine Specific [place] 1.017 (1.001-1.035) Urine Protein Negative (Negative) Urine Ketones Negative (Negative) Urine Blood Negative /uL (Negative) Urine Nitrite Negative (Negative) Urine Bilirubin Negative (Negative) Urine Urobilinogen Normal mg/dL (Negative) Urine Leukocyte Esterase Negative /uL (Negative) Urine RBC 4 /hpf (0 - 4) Urine Microscopic WBC 1 /HPF (0-5) Urine Squamous Epithelial Cells Few /hpf (<5) Urine Bacteria None seen /hpf (None Seen) Urine Glucose Normal mg/dL (Normal) Urine Test Negative (Negative) Assessment/Plan Assessment/Plan Lumbar radiculopathy Lumbar spinal stenosis Lumbar degenerative disc disease Intractable lower back pain due to above Lumbar spine CT: No acute displaced fracture. Minimal disc protrusion effaces the thecal sac at L4-L5 level. Minimal disc protrusion at L5-S1 level. No significant spinal canal or neural foraminal stenosis. Lumbar MRI (06/02/25): Mild disc bulges without significant nerve compression. MRI of brain, neck and upper back scheduled for June 13, 2025. Lumbar spine MRI (04/19/25): Multilevel disc degeneration. Mild bilateral subarticular zone stenosis at L4-L5 level. Moderate left foraminal stenosis at L4-L5 level. Cervical spine CT: No evidence of acute cervical spine fracture or traumatic malalignment. Spine surgeon consult and neurology repeat MRI brain, C, thoracic and lumber spine>working negative Pending MRI brain pain management with Tylenol, [place] and Dilaudid Migraine continue home medications Hypertension monitor BP Obesity, BMI 40.4 kg/m2 I have counseled the patient on healthy lifestyle modifications Plan discussed with: Patient My Orders Orders - MARTHA FLORES MD Procedure Category Date Status Time Lumbar Spine Wo W MRI 06/12/25 Resulted Contrst 14:43 Cervical Wo Contrast MRI 06/12/25 Resulted 14:43 Brain Head Wo W MRI 06/12/25 Logged Contrast 08:43 * Neurology Consult CONS 06/12/25 Transmitted 10:19 Date of Service: Jun 12, 2025 Billing Provider: MARTHA FLORES MD Common Visit Codes: [id number] INP/OBS CARE(HIGH) MARTHA FLORES MD Jun 12, 2025 13:23
[2025-06-12] MEDS ORDERED: GADOTERATE MEG 7.5 MMOL/15ml INJ (0.5MMOL/ml) IV ONE (14:18)
--- NOTE | 2025-06-12 15:20 | DVH ---
PROCEDURE: MRI BRAIN HEAD WO W CONTRAST INDICATION: deg disc disease EXAM DATE: 06/12/2025 02:23 PM COMPARISON: None TECHNIQUE: MRI of the brain without intravenous contrast. FINDINGS: Diffusion weighted images of the brain demonstrate no evidence of acute infarction. There is no evidence of acute intracranial hemorrhage, extra-axial collection, mass effect, midline shift, herniation or hydrocephalus. The ventricles, sulci and cisterns appear age appropriate. The signal intensities of the brain parenchyma are within normal limits. There are no signal abnormalities on the susceptibility weighted sequences. No mass or abnormal enhancement. The major vascular flow voids are present. The visualized paranasal sinuses and mastoid air cells are clear. The surrounding soft tissues and osseous structures are unremarkable. IMPRESSION: Normal brain MRI
[2025-06-13] VITALS (8 sets, daily range): BP systolic 96–130; BP diastolic 54–87; PULSE 80–114; RESP 16–21; TEMP 97.6–98.4; O2SAT 98–100
[2025-06-13] MEDS: ACETAMINOPHEN 325 MG TAB PO PRN (14:51)
--- NOTE | 2025-06-13 16:21 | DVHPN2 ---
Subjective Patient is complaining of low back pain since March, also rectal pain like somebody sticking a knife in the rectum. Reviewed: H&P Changes from previous H/P or p: No Changes Objective Vitals Vital Signs Date Time Temp Pulse Resp B/P (MAP) Pulse Ox O2 Delivery O2 Flow Rate FiO2 06/13/25 13:20 87 19 122/85 06/13/25 12:38 97.8 99 97.8 06/13/25 08:00 Room Air* 0 21 Intake/Output Intake and Output 06/13/25 07:00 Intake Total 1500 ml Balance 1500 ml Intake Oral 1500 ml # Voids 12 Exam HEENT pupils are reactive Neck is supple CV is S1-S2 regular rate and rhythm Respiratory diminished breath sounds bases GI positive bowel sound Extremity no edema [employer] no motor deficit General Appearance: Alert, Oriented X3 Lungs: Clear to auscultation Cardiovascular: Regular rate, Normal S1, Normal S2 Musculoskeletal: Other (left leg knee hypereflexia, stiff) Medications Current Medications Medications Dose Ordered Sig/Mario Route Start Time Stop Time Status Last Admin Dose Admin Sodium Chloride 10 ml Q8HR IV 06/11/25 06:00 06/13/25 13:35 10 ML Acetaminophen/ Hydrocodone Bitart 1 tab Q4HP PRN PO 06/10/25 22:15 06/12/25 13:04 1 TAB Acetaminophen 650 mg Q6HP PRN PO 06/10/25 22:15 06/13/25 14:51 650 MG Ondansetron HCl 4 mg Q4HPRN PRN IV 06/10/25 22:15 Hydromorphone HCl 0.5 mg Q4HPRN PRN IV 06/11/25 11:30 06/13/25 12:50 0.5 MG Laboratory Results Laboratory Tests 06/11/25 09:16 Urinalysis Test 06/10/25 15:41 Urine Color Light-yellow (Yellow) Urine Clarity Clear (Clear) Urine pH 7.0 (5.0-9.0) Urine Specific [place] 1.017 (1.001-1.035) Urine Protein Negative (Negative) Urine Ketones Negative (Negative) Urine Blood Negative /uL (Negative) Urine Nitrite Negative (Negative) Urine Bilirubin Negative (Negative) Urine Urobilinogen Normal mg/dL (Negative) Urine Leukocyte Esterase Negative /uL (Negative) Urine RBC 4 /hpf (0 - 4) Urine Microscopic WBC 1 /HPF (0-5) Urine Squamous Epithelial Cells Few /hpf (<5) Urine Bacteria None seen /hpf (None Seen) Urine Glucose Normal mg/dL (Normal) Urine Test Negative (Negative) Assessment/Plan Assessment/Plan 30-year-old female with a known history of chronic migraine, asthma, anxiety disorder, chronic low back pain since March of this year was seen at [facility] presented to the hospital with a low back pain found to have 1. Intractable low back pain 2. Rule out lumbar radiculopathy 3. Rule out degenerative disc disease 4. Asthma currently not in exacerbation 5. Anxiety disorder 6. Migraine 7. Morbid obesity classIII - DVT prophylaxis, pain management, follow up spine surgery, -plan of care discussed with the patient and family all the questions were answered. Plan discussed with: Patient, Other My Orders Orders - SHEILA OCAMPO MD Procedure Category Date Status Time Enoxaparin Sodium PHA 06/13/25 Verified (Lovenox) 16:30 Date of Service: Jun 13, 2025 Billing Provider: SHEILA OCAMPO MD Common Visit Codes: [id number] INP/OBS CARE(HIGH) SHEILA OCAMPO MD Jun 13, 2025 16:21
[2025-06-13] MEDS: ENOXAPARIN SOD 40 MG/0.4 ML SYRINGE SC SCH (17:00)
[2025-06-14 01:00] VITALS: BP 138/88; PULSE 89; RESP 17; TEMP 97.8; O2SAT 94
[2025-06-14 05:00] VITALS: BP 124/79; PULSE 78; RESP 16; TEMP 98.3; O2SAT 99
--- NOTE | 2025-06-14 06:48 | DVHINCON2 ---
Consultation - Surgical Date Seen: Jun 14, 2025 Referring Physician Referring Physician Attending Doctor: Didier Valdivia MD Resident Creating Document: JUNITO MENDES Reason for Consultation degenerative disc disease of low back History of Present Illness History of Present Illness History of Present Illness Patient is a 30-year-old female with past medical history of osteoarthritis, migraine, asthma, HTN and degenerative disc disease of low back, presented to [facility] ED with complaint of lower back pain for the past 3 months. The patient is experiencing lower back pain that radiates down her legs and her groin region with numbness. She was admitted to this hospital two months ago, at which time an MRI was performed to rule out cauda equina syndrome. That MRI revealed disc protrusions and spinal stenosis. The patient states her symptoms have never fully improved since that admission. She recently had anot her MRI performed on June 02, 2025, which showed mild disc bulges without significant nerve compression. Her symptoms have worsened despite physical therapy, and surgery was not indicated based on imaging at that time. She also has another MRI of brain, neck and upper back scheduled for June 13, 2025. She denies dysuria, hematuria, saddle anesthesia, urinary incontinence, bowel incontinence, fever, chills, shortness of breath, chest pain, abdominal pain, nausea, vomiting, headache, or other complaints. No other symptoms or modifying factors are reported at this time. The patient is alert, oriented to person, place, time, and situation, and demonstrates a steady gait. On evaluation in the ED, patient is afebrile, tachycardic, other vitals are stable. Initial lab results are within normal limits. Lumbar spine CT shows minimal disc protrusion effaces the thecal sac at L4-L5 level and minimal disc protrusion at L5-S1 level. The patient was started on pain management and IV fluids. Patient is admitted for further evaluation and management. Past Medical/Surgical History Past Medical/Surgical History Past Medical History Osteoarthritis, migraine, asthma, HTN, degenerative disc disease of low back Past Surgical History: None Family and Social History Family and Social History Family History: None Smoke: No ALCOHOL: none Drugs: None Allergies and medications Allergies: Coded Allergies: Morphine (Verified Allergy, Mild, Localized Rash, 04/19/25) Naproxen (Verified Allergy, Unknown, 12/02/24) Pineapple (Verified Allergy, Unknown, 04/19/25) Home Meds Active Scripts Methylprednisolone (Medrol Dosepak) 4 Mg Maximo, 4 MG PO UD, #21 TAB 0 Refills UAD Prov:GIANNI WALL JIG BORER 04/26/25 Methocarbamol (Methocarbamol) 500 Mg Tab, 500 MG PO Q8HP PRN for 10 Days, #30 TAB 0 Refills Prov:GIANNI WALL JIG BORER 04/26/25 Ibuprofen Micronized (Ibuprofen) 600 Mg Tab, 600 MG PO BID for 10 Days, #20 TAB 0 Refills Prov:AMOL HOLLIDAY 04/20/25 Meclizine HCl (Meclizine 25) 25 Mg Tab, 25 MG PO DAILY for 5 Days, #5 TAB Prov:BILL HAM MD 12/03/24 Reported Medications Albuterol Sulfate (Albuterol Sulfate) 2 Mg Tab, 2 MG PO Q6HP PRN for SHORTNESS OF BREATH, MG 06/11/25 Amitriptyline HCl (Amitriptyline HCl) 25 Mg Tab, 25 MG PO DAILY, TAB 06/11/25 Sumatriptan Succinate (Sumatriptan Succinate) 100 Mg Tab, 100 MG PO DAILY, MG 06/11/25 Metoprolol Succinate (Metoprolol Succinate Er) 50 Mg Tab, 1 TAB PO 04/19/25 Atogepant (Qulipta) 60 Mg Tab, 1 TAB PO DAILY 04/19/25 Discontinued Reported Medications Sumatriptan Succinate (Imitrex) 50 Mg Tab, 1 TAB PO UD, #9 TAB 1 Refill 04/19/25 Review of systems Review of Systems: MSK:Abnormal (back pain, leg pain) Examination Vital signs imaging ORDERING PHYSICIAN: MARTHA FLORES MD PROCEDURE(s): MSLW - LUMBAR SPINE WO W CONTRST REASON: ORDER NUMBER(s): [id number], ACCESSION NUMBER(s): [id number] PROCEDURE: MRI LUMBAR SPINE WO W CONTRST Indication: SPINAL STENOSIS COMPARISON: None TECHNIQUE: Multiplanar multisequence images of the the lumbar spine are obtained. FINDINGS: For the purpose of this examination, there are 5 lumbar vertebral body types counting from the lumbosacral junction. Lumbar vertebral body heights maintained. Alignment maintained. Disc spaces preserved. No abnormal marrow edema. Conus terminates at the L1 level. L1-2: No spinal canal, neural foraminal stenosis. L2-3: No spinal canal, neural foraminal stenosis. L3-4: Tiny disc protrusion. No spinal canal, neural foraminal stenosis. L4-5: Tiny disc protrusion. No spinal canal, neural foraminal stenosis. L5-S1: Tiny disc protrusion. No spinal canal, neural foraminal stenosis. IMPRESSION: No significant lumbar spinal canal, neural foraminal stenosis. No significant lumbar degenerative disc disease. RING PHYSICIAN: MARTHA FLORES MD PROCEDURE(s): MNE - CERVICAL WO CONTRAST REASON: SPINAL STENOSIS ORDER NUMBER(s): [id number], ACCESSION NUMBER(s): [id number] MRI CERVICAL WO CONTRAST INDICATION: SPINAL STENOSIS EXAM DATE: 06/12/2025 07:27 AM COMPARISON: CT CERVICAL WITHOUT CONTRAST on DOS: 06/10/25 PROCEDURE: Using a 1.5 Destini scanner, multisequence multiplanar imaging of The cervical spine was obtained. FINDINGS: Alignment at the craniocervical junction is maintained. The cervical spine shows anatomic alignment with preservation of vertebral body heights. The marrow signal is homogeneous. The intervertebral discs appear normal in height and signal. The cervical cord is normal in signal and caliber. The paravertebral soft tissues are normal in appearance. On axial images: the posterior disc margin, thecal sac, neural foramina, and facet joints appear unremarkable. IMPRESSION: Unremarkable MRI findings of the cervical spine. Vital Signs Date Time Temp Pulse Resp B/P (MAP) Pulse Ox O2 Delivery O2 Flow Rate FiO2 06/14/25 05:25 77 15 122/80 06/14/25 05:00 98.3 99 98.3 06/13/25 20:00 Room Air* 0 21 Medications Current Medications Medications (Trade) Dose Ordered Sig/Mario Route PRN Reason Start Time Stop Time Status Last Admin Enoxaparin Sodium (Lovenox) 40 mg DAILY@1700 SC 06/13/25 16:30 06/13/25 17:06 Laboratory Labs Test 06/11/25 09:16 06/10/25 21:47 06/10/25 15:41 06/10/25 14:36 Range/Units White Blood Count 12.4 #H 4.4-10.8 10^3/uL Red Blood Count 4.76 4.0-5.20 10^6/uL Hemoglobin 14.3 12.2-16.2 g/dL Hematocrit 42.8 36.0-46.0 % Mean Corpuscular Volume 90.0 80.0-100.0 fL Mean Corpuscular Hemoglobin 30.0 28.0-32.0 pg Mean Corpuscular Hemoglobin Concent 33.4 32.0-36.0 g/dL Red Cell Distribution Width 13.3 11.8-14.3 % Platelet Count 300 140-450 10^3/uL Mean Platelet Volume 7.9 6.9-10.8 fL Neutrophils (%) (Auto) 81.6 H 37.0-80.0 % Lymphocytes (%) (Auto) 11.7 10.0-50.0 % Monocytes (%) (Auto) 6.5 0.0-12.0 % Eosinophils (%) (Auto) 0.0 0.0-7.0 % Basophils (%) (Auto) 0.2 0.0-2.0 % Neutrophils # (Auto) 10.2 H 1.6-8.6 10 ^3/uL Lymphocytes # (Auto) 1.5 0.4-5.4 10 ^3/uL Monocytes # (Auto) 0.8 0-1.3 10 ^3/uL Eosinophils # (Auto) 0 0-0.8 10 ^3/uL Basophils # (Auto) 0 0-0.2 10 ^3/uL Nucleated Red Blood Cells 0.1 % Sodium Level 140 136-145 mmol/L Potassium Level 3.9 3.5-5.1 mmol/L Chloride Level 106 98-107 mmol/L Carbon Dioxide Level 25 20-31 mmol/L Anion Gap 9 5-15 Blood Urea Nitrogen 6 L 9-23 mg/dL Creatinine 0.60 0.550-1.02 mg/dL Glomerular Filtration Rate Calc 122 >90 mL/min BUN/Creatinine Ratio 10.0 10.0-20.0 Serum Glucose 111 H 74-106 mg/dL Calcium Level 9.2 8.7-10.4 mg/dL Total Bilirubin 0.4 0.2-1.0 mg/dL Aspartate Amino Transferase (AST) 18 13-40 U/L Alanine Aminotransferase (ALT) 16 7-40 U/L Alkaline Phosphatase 108 46-116 U/L Total Protein 7.1 5.7-8.2 g/dL Albumin 4.2 3.2-4.8 g/dL POC Glucose 279 H 70-106 mg/dl Urine Color Light-yellow Yellow Urine Clarity Clear Clear Urine pH 7.0 5.0-9.0 Urine Specific [place] 1.017 1.001-1.035 Urine Protein Negative Negative Urine Ketones Negative Negative Urine Blood Negative Negative /uL Urine Nitrite Negative Negative Urine Bilirubin Negative Negative Urine Urobilinogen Normal Negative mg/dL Urine Leukocyte Esterase Negative Negative /uL Urine RBC 4 0 - 4 /hpf Urine Microscopic WBC 1 0-5 /HPF Urine Squamous Epithelial Cells Few <5 /hpf Urine Bacteria None seen None Seen /hpf Urine Glucose Normal Normal mg/dL Urine Test Negative Negative Hemoglobin A1c 5.0 <5.7 % A1C Direct Bilirubin < 0.1 <0.3 mg/dL Examination: GENERAL:Normal, HEENT:Normal, NECK:Normal, LUNGS:Normal, CVS:Normal, ABDOMEN:Normal, MSK:Abnormal (low back pain, leg pain intermittent), SKIN:Normal, NEURO:Normal (pain), :Normal Problem List/Assessment/Plan Problems: (1) Lower back pain (2) Muscle weakness Assessment and Plan No significant lumbar spinal canal, neural foraminal stenosis. No significant lumbar degenerative disc disease. Unremarkable MRI findings of the cervical spine. Spine surgery does recommend to follow the recommendations of the neurosurgeon at [facility] and obtain contrast studies of her spine to rule out any possible tumors Continue care and support per admitting team's discretion Physical therapy evaluation, treatment recommendations and safe discharge planning recommendations Effective pain management including muscle relaxers if the patient is c omplaining of muscle spasms Discussed treatment options with the patient focusing on physical therapy, and possibly starting pain management then going into physical therapy if physical therapy is too uncomfortable. Upon review patient's MRIs do not seem as bad as they were initially reported and do not warrant any surgical intervention. We recommend the patient should follow up with her primary care provider and get into a physical therapy/ pain management that is lumbar specific to help increase flexibility, strengthening and posture. Patient does not have any spine surgical needs at this time. No barriers to discharge from a spine surgery perspective Call with questions Hernandez Ba [facility] Orthopaedic Spine Surgery nurse practitioner For Dr Abraham Weinberg Patient was examined, chart reviewed, labs evaluated, and diagnostic studies and findings analyzed. Case was discussed with Dr. Zackary Weinberg who formulated the plan of care. This medical document was created using an electronic medical record system with [employer] dictation system. Although this document has been carefully reviewed, there might still be some phonetic and typographical errors. These areas are purely typographical due to imperfections of the software programs, and do not reflect any compromise in the patient's medical care. Plan discussed with Plan discussed with: Patient, Other (Bedside nurse) Visit Coding Surgery Date of Service if different f: Jun 14, 2025 Billing Provider: KJ BA NP Surgery Visit Codes: [id number] - INP CONSULT <55 MIN KJ BA NP Jun 14, 2025 06:48
[2025-06-14 09:00] VITALS: BP_SYST 126; BP_SYST 130; BP_DIAS 86; BP_DIAS 98; PULSE 59; PULSE 97; RESP 16; RESP 17; TEMP 97.8; TEMP 98.1; O2SAT 100
[2025-06-14 13:00] VITALS: BP 135/82; PULSE 80; RESP 17; TEMP 99.2; O2SAT 97
[2025-06-14 13:44] LABS: Chloride 104 mmol/L (98-107); Potassium 3.8 mmol/L (3.5-5.1); Sodium 141 mmol/L (136-145)
[2025-06-14 13:45] LABS: Anion Gap 11 (5-15); Calcium 9.0 mg/dL (8.7-10.4); Carbon Dioxide 26 mmol/L (20-31)
[2025-06-14 13:50] LABS: Blood Urea Nitrogen 11 mg/dL (9-23); Glucose 119 mg/dL (74-106)
[2025-06-14 13:59] LABS: BUN/Creatinine Ratio 20.0 (10.0-20.0)
--- NOTE | 2025-06-14 14:15 | DVHPN2 ---
Subjective Patient is complaining of low back pain since March, also rectal pain like somebody sticking a knife in the rectum. Also she added that her Neurosurgery was asking for MRI thoracic spine because of her bilateral lower extremity weakness. Discuss case breaths spine surgeon Dr. gonzalez and his [employer] Bhavna Meneses recommended MRI thoracic spine with contrast. Risk of contrast induced nephropathy has been explained to the patient in detail including worsening kidney functioning patient is currently understand and agrees to plan Reviewed: H&P Changes from previous H/P or p: No Changes Objective Vitals Vital Signs Date Time Temp Pulse Resp B/P (MAP) Pulse Ox O2 Delivery O2 Flow Rate FiO2 06/14/25 10:46 105 16 128/88 06/14/25 09:00 98.1 100 98.1 06/13/25 20:00 Room Air* 0 21 Intake/Output Intake and Output 06/14/25 07:00 Intake Total 1975 ml Balance 1975 ml Intake Oral 1975 ml # Voids 7 # Bowel Movements 1 Exam HEENT pupils are reactive Neck is supple CV is S1-S2 regular rate and rhythm Respiratory diminished breath sounds bases GI positive bowel sound Extremity no edema G[employer] 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 General Appearance: Alert, Oriented X3 Lungs: Clear to auscultation Cardiovascular: Regular rate, Normal S1, Normal S2 Musculoskeletal: Other (left leg knee hypereflexia, stiff) Medications Current Medications Medications Dose Ordered Sig/Mario Route Start Time Stop Time Status Last Admin Dose Admin Sodium Chloride 10 ml Q8HR IV 06/11/25 06:00 06/14/25 05:46 10 ML Acetaminophen/ Hydrocodone Bitart 1 tab Q4HP PRN PO 06/10/25 22:15 06/14/25 10:08 1 TAB Acetaminophen 650 mg Q6HP PRN PO 06/10/25 22:15 06/13/25 14:51 650 MG Ondansetron HCl 4 mg Q4HPRN PRN IV 06/10/25 22:15 Hydromorphone HCl 0.5 mg Q4HPRN PRN IV 06/11/25 11:30 06/14/25 10:46 0.5 MG Enoxaparin Sodium 40 mg DAILY@1700 SC 06/13/25 16:30 06/13/25 17:06 40 MG Laboratory Results Laboratory Tests 06/11/25 09:16 06/14/25 13:09 Chemistry Test 06/14/25 13:09 Calcium Level 9.0 mg/dL (8.7-10.4) Urinalysis Test 06/10/25 15:41 Urine Color Light-yellow (Yellow) Urine Clarity Clear (Clear) Urine pH 7.0 (5.0-9.0) Urine Specific [place] 1.017 (1.001-1.035) Urine Protein Negative (Negative) Urine Ketones Negative (Negative) Urine Blood Negative /uL (Negative) Urine Nitrite Negative (Negative) Urine Bilirubin Negative (Negative) Urine Urobilinogen Normal mg/dL (Negative) Urine Leukocyte Esterase Negative /uL (Negative) Urine RBC 4 /hpf (0 - 4) Urine Microscopic WBC 1 /HPF (0-5) Urine Squamous Epithelial Cells Few /hpf (<5) Urine Bacteria None seen /hpf (None Seen) Urine Glucose Normal mg/dL (Normal) Urine Test Negative (Negative) Assessment/Plan Assessment/Plan 30-year-old female with a known history of chronic migraine, asthma, anxiety disorder, chronic low back pain since March of this year was seen at [facility] presented to the hospital with a low back pain found to have 1. Intractable low back pain 2. Rule out lumbar radiculopathy 3. Rule out degenerative disc disease 4. Asthma currently not in exacerbation 5. Anxiety disorder 6. Migraine 7. Morbid obesity classIII - DVT prophylaxis, pain management, follow up spine surgery, MRI thoracic spine with contrast has been ordered. -plan of care discussed with the patient and family all the questions were answered. -neurology consultation to rule out any multiple sclerosis. Plan discussed with: Patient My Orders Orders - SHEILA OCAMPO MD Procedure Category Date Status Time Enoxaparin Sodium PHA 06/13/25 In Process (Lovenox) 16:30 Thoracic Spine With MRI 06/14/25 Logged 14:09 Thoracic Spine With MRI 06/14/25 Transmitted 14:11 Date of Service: Jun 14, 2025 Billing Provider: SHEILA OCAMPO MD Common Visit Codes: [id number] INP/OBS CARE(HIGH) SHEILA OCAMPO MD Jun 14, 2025 14:15
[2025-06-14] MEDS ORDERED: GADOTERATE MEG 10 MMOL/20ml INJ (0.5MMOL/ml) IV ONE (15:36)
[2025-06-14] MEDS ORDERED: AMIT10TA12 PO (15:44)
--- NOTE | 2025-06-14 17:14 | DVH ---
EXAM: MRI THORACIC SPINE WITH INDICATION: Bilateral lower extremity weakness TECHNIQUE: Multiplanar, multisequence imaging of the thoracic spine with and without contrast. COMPARISON: CT THORACIC SPINE WO CONTRAS on DOS: 03/28/25 FINDINGS: [ANATOMY]: Normal alignment of the thoracic spine. [BONES]: The vertebral bodies are normal in height, alignment, and marrow signal. [CORD]: Normal cord signal. No abnormal enhancement. [SPINAL CANAL]: No significant spinal canal narrowing. [INTERVERTEBRAL DISCS]: Diffuse disc desiccation. [FACETS]: Normal alignment of the facets. [FORAMINA]: No significant foraminal narrowing. [OTHER]: The visualized paraspinal soft tissues are unremarkable. IMPRESSION: 1. No significant MR abnormality of the thoracic spine. No abnormal enhancement.
[2025-06-14 20:00] VITALS: PULSE 102; RESP 18; O2SAT 99
[2025-06-14 21:00] VITALS: BP 108/80; PULSE 104; RESP 18; TEMP 97.6; O2SAT 99
[2025-06-14] MEDS: AMITRIPTYLINE HCL 10 MG TAB PO SCH (22:31)
[2025-06-14] MEDS: METOPROLOL SUCCINATE XL 50 MG TAB PO SCH (22:32)
[2025-06-14] MEDS: QULIPTA 60 MG PO SCH (22:33)
[2025-06-15 01:00] VITALS: BP 127/77; PULSE 91; RESP 17; TEMP 97.8; O2SAT 100
[2025-06-15 05:00] VITALS: BP 110/85; PULSE 81; RESP 17; TEMP 97.9; O2SAT 100
[2025-06-15 08:41] VITALS: BP 114/75; PULSE 82; RESP 18; TEMP 97.9; O2SAT 99
[2025-06-15 12:30] VITALS: BP 118/87; PULSE 82; RESP 17; TEMP 98.9; O2SAT 97
--- NOTE | 2025-06-15 14:26 | DVHDS2 ---
Discharge Summary Date of Admission Jun 10, 2025 at 22:07 Date of Discharge: Jun 15, 2025 Labs/Diagnostic Data: Laboratory Results Test 06/14/25 13:09 06/11/25 09:16 06/10/25 21:47 06/10/25 15:41 Sodium Level 141 mmol/L (136-145) Potassium Level 3.8 mmol/L (3.5-5.1) Chloride Level 104 mmol/L (98-107) Carbon Dioxide Level 26 mmol/L (20-31) Anion Gap 11 (5-15) Blood Urea Nitrogen 11 mg/dL (9-23) Creatinine 0.55 mg/dL (0.550-1.02) Glomerular Filtration Rate Calc 125 mL/min (>90) BUN/Creatinine Ratio 20.0 (10.0-20.0) Serum Glucose 119 mg/dL (74-106) Calcium Level 9.0 mg/dL (8.7-10.4) White Blood Count 12.4 10^3/uL (4.4-10.8) Red Blood Count 4.76 10^6/uL (4.0-5.20) Hemoglobin 14.3 g/dL (12.2-16.2) Hematocrit 42.8 % (36.0-46.0) Mean Corpuscular Volume 90.0 fL (80.0-100.0) Mean Corpuscular Hemoglobin 30.0 pg (28.0-32.0) Mean Corpuscular Hemoglobin Concent 33.4 g/dL (32.0-36.0) Red Cell Distribution Width 13.3 % (11.8-14.3) Platelet Count 300 10^3/uL (140-450) Mean Platelet Volume 7.9 fL (6.9-10.8) Neutrophils (%) (Auto) 81.6 % (37.0-80.0) Lymphocytes (%) (Auto) 11.7 % (10.0-50.0) Monocytes (%) (Auto) 6.5 % (0.0-12.0) Eosinophils (%) (Auto) 0.0 % (0.0-7.0) Basophils (%) (Auto) 0.2 % (0.0-2.0) Neutrophils # (Auto) 10.2 10 ^3/uL (1.6-8.6) Lymphocytes # (Auto) 1.5 10 ^3/uL (0.4-5.4) Monocytes # (Auto) 0.8 10 ^3/uL (0-1.3) Eosinophils # (Auto) 0 10 ^3/uL (0-0.8) Basophils # (Auto) 0 10 ^3/uL (0-0.2) Nucleated Red Blood Cells 0.1 % Total Bilirubin 0.4 mg/dL (0.2-1.0) Aspartate Amino Transferase (AST) 18 U/L (13-40) Alanine Aminotransferase (ALT) 16 U/L (7-40) Alkaline Phosphatase 108 U/L (46-116) Total Protein 7.1 g/dL (5.7-8.2) Albumin 4.2 g/dL (3.2-4.8) POC Glucose 279 mg/dl (70-106) Urine Color Light-yellow (Yellow) Urine Clarity Clear (Clear) Urine pH 7.0 (5.0-9.0) Urine Specific [place] 1.017 (1.001-1.035) Urine Protein Negative (Negative) Urine Ketones Negative (Negative) Urine Blood Negative /uL (Negative) Urine Nitrite Negative (Negative) Urine Bilirubin Negative (Negative) Urine Urobilinogen Normal mg/dL (Negative) Urine Leukocyte Esterase Negative /uL (Negative) Urine RBC 4 /hpf (0 - 4) Urine Microscopic WBC 1 /HPF (0-5) Urine Squamous Epithelial Cells Few /hpf (<5) Urine Bacteria None seen /hpf (None Seen) Urine Glucose Normal mg/dL (Normal) Urine Test Negative (Negative) Test 06/10/25 14:36 Hemoglobin A1c 5.0 % A1C (<5.7) Direct Bilirubin < 0.1 mg/dL (<0.3) Other Laboratory Tests 06/14/25 13:09 06/11/25 09:16 Brief Hx & Hospital Course: 30-year-old female with a known history of chronic migraine, asthma, anxiety disorder, chronic low back pain since March of this year was seen at [facility] presented to the hospital with a low back pain found to have 1. Intractable low back pain 2. Rule out lumbar radiculopathy 3. Rule out degenerative disc disease 4. Asthma currently not in exacerbation 5. Anxiety disorder 6. Migraine 7. Morbid obesity classIII Final Diagnosis/Problems List 30-year-old female with a known history of chronic migraine, asthma, anxiety disorder, chronic low back pain since March of this year was seen at [facility] presented to the hospital with a low back pain found to have 1. Intractable low back pain 2. Rule out lumbar radiculopathy 3. Rule out degenerative disc disease 4. Asthma currently not in exacerbation 5. Anxiety disorder 6. Migraine 7. Morbid obesity classIII Discharge Disposition: Home Discharge Instruct/Medications Diet: Cardiac 2g Na,low cholest Activity: See Comment Activity comment: No driving, no signing of legal documents, no planning on machinery while on narcotics at home Follow Up/Referral: Please follow up with the PCP in 1-2 weeks Follow up with your own neurosurgeon at [facility]. Medications: Resume home medications. Scheduled Amitriptyline HCl (Amitriptyline HCl), 25 MG PO DAILY, (Reported) Amitriptyline Hcl (Amitriptyline Hcl), 20 TAB PO HS, (Reported) Atogepant (Qulipta), 1 TAB PO DAILY, (Reported) Atogepant (Qulipta), 60 MG PO DAILY, (Reported) Ibuprofen Micronized (Ibuprofen), 600 MG PO BID Meclizine HCl (Meclizine 25), 25 MG PO DAILY Methylprednisolone (Medrol Dosepak), 4 MG PO UD Sumatriptan Succinate (Sumatriptan Succinate), 100 MG PO DAILY, (Reported) Scheduled PRN Albuterol Sulfate (Albuterol Sulfate), 2 MG PO Q6HP PRN for SHORTNESS OF BREATH, (Reported) Methocarbamol (Methocarbamol), 500 MG PO Q8HP PRN Miscellaneous Medications Metoprolol Succinate (Metoprolol Succinate Er), 1 TAB PO, (Reported) Discontinued Medications Sumatriptan Succinate (Imitrex), 1 TAB PO UD, (Reported) Discharge Statement: "Patient was advised to return to the ER or call 911 if any headaches, dizziness, shortness of breath, chest pain, abdominal pain, bleeding, fevers, or worsening of medical condition. Patient was counseled about treatment plan, medications, possible side effects, patientverbalized understanding. All questions were answered to the best of my ability. This discharge took greater then 30 minutes in planning, reviewing documentation, counseling the patient, and discussing with other team members." ASSESSMENT ASSESSMENT Assessment 30-year-old female with a known history of chronic migraine, asthma, anxiety disorder, chronic low back pain since March of this year was seen at [facility] presented to the hospital with a low back pain found to have 1. Intractable low back pain 2. Rule out lumbar radiculopathy 3. Rule out degenerative disc disease 4. Asthma currently not in exacerbation 5. Anxiety disorder 6. Migraine 7. Morbid obesity classIII SHEILA OCAMPO MD Jun 15, 2025 14:26
[2025-06-15 14:46] VITALS: BP 112/81; PULSE 100; TEMP 37.2
== END 2025-06-15 15:27 | disposition home or self-care (01) | DRG 552 ==
LOC: ER 13:00 → OVERFLOW 22:07 → WEST WING 22:29
PROVIDERS: ADMIT Internal Medicine; ATTEND Internal Medicine
DX: M51.16 Intervertebral disc disorders with radiculopathy, lumbar region (principal); E66.01 Morbid (severe) obesity due to excess calories; I10 Essential (primary) hypertension; J45.909 Unspecified asthma, uncomplicated; Z68.41 Body mass index [BMI] 40.0-44.9, adult; M48.061 Spinal stenosis, lumbar region without neurogenic claudication; G43.909 Migraine, unspecified, not intractable, without status migrainosus; F41.9 Anxiety disorder, unspecified; E66.813 Obesity, class 3; G89.29 Other chronic pain; M54.50 Low back pain, unspecified; Z88.6 Allergy status to analgesic agent; Z88.5 Allergy status to narcotic agent; Z91.018 Allergy to other foods
CPT/HCPCS: 36415; 70553; 72125; 72131; 72141; 72147; 72158; 80048; 80053; 80076; 81001; 81025; 82962; 83036; 85025; 96361; 96374; 96375; 97163; G0378; J2405